=== PATIENT | male | born 2005 | race Caucasian/White ===

== ENCOUNTER 2025-04-28 15:56 | Outpatient (BNV) | payer SELFPAY | END 2025-05-02 11:13 | PROVIDERS: Admitting Provider Psychiatry & Neurology Psychiatry; Visit Provider Internal Medicine Cardiovascular Disease | DX: R07.9 Chest pain, unspecified (principal) | CPT/HCPCS: 93010 ==

== ENCOUNTER 2025-04-28 15:56 | Inpatient (IN) | payer MEDICAID, SELFPAY ==
--- OUTSIDE RECORDS SUMMARY | 2025-04-28 16:02 | XMS_ITS | Clinical Summary ---
Author Organization [facility] Address [address] [place] [id number] Care Team Providers Care Intervention Teacher Name Role Phone Patient, Has No Pcp Or Ref Primary Care Provider Unavailable Allergies No known active allergies Medications * This document contains information received from the source organization and may not represent a complete record from that organization. ondansetron (ZOFRAN ODT) 4 mg disintegrating tablet Dissolve 1 tablet (4 mg total) in the mouth every 8 hours as needed for nausea or vomiting. 12 tablet 4 Active ondansetron (ZOFRAN) 4 mg tablet Take 1 tablet (4 mg total) by mouth every 8 hours as needed for nausea or vomiting for up to 15 doses. 15 tablet 4 Active LORazepam (Ativan) 1 mg tablet Take 0.5 tablets (0.5 mg total) by mouth every 8 hours as needed for anxiety for up to 7 days. 10 tablet 4 Active Active Problems Problem Noted Date Diagnosed Date Dehydration 05/14/2024 Acute renal insufficiency 05/13/2024 Alcohol use disorder 01/24/2024 Assessment & Plan (01/24/2024 6:28 AM EDT): Patient with significant alcohol use Last use was over 3 days ago though He is currently diaphoretic and tachycardic, though withdrawal symptoms is less likely after 3 days CIWA protocol with benzos Thiamine, folic acid, MTV Monitor serum electrolytes and replete as needed IVF Elevated LFTs 12/16/2021 Hepatitis 12/15/2021 Assessment & Plan (12/20/2021 9:49 AM EST): Patient presented to hospital with significant LUQ abdominal pain, nausea, and vomiting, and reported recent episode of binge drinking alcohol. Patient also reports marijuana use. On admission, found to have noted to have abnormal LFTs with elevated T bili 6.0, AST 388, and ALT 462. GGT elevated 41, Ferritin elevated 823. INR 1.1. Acute hepatitis panel negative. Tylenol level, lipase, ceruloplasmin, YURIY, 5' Nucleotidase within normal limits. Marijuana positive. On 12/15/21 CT abdomen/pelvis showed likely hepatic steatosis. On 12/16/21 RUQ US showed gallbladder sludge, no acute cholecystitis and mild fatty liver; No hepatic masses or lesions, patent portal vein on Doppler US. Patient started to feel better, but once regular diet was resumed, patient was unable to tolerate PO intake and continued to vomit. On 12/17 X-ray of abdomen did not show any free air or obstruction. GI consulted, likely alcoholic hepatitis vs. passed gallstone. Per GI, Maddrey Discriminant Function score of 7.1 indicated good prognosis, and no indication for use of steroids. General surgery consulted and determined patient was not a surgical candidate at this time. Throughout hospital course hepatic function panel continued to improve Tbili 3.4 --> 2.1 --> 1.8 --> 1.5. Direct bili 1.3 --> 0.9 --> 0.7 --> 0.6. AST 288 --> 96 --> 55 --> 34. ALT 667 --> 450 --> 316 --> 226. - GI following, appreciate recs - General surgery consulted, appreciate recs - Trend LFTs daily - Continue Protonix 40 mg BID - Supportive care with IVF, PRN antiemetic Reglan and Zofran, diet as tolerated - Follow up with RUQ ultrasound in 3-6 months outpatient - Follow up with GI outpatient for endoscopy Hypokalemia 12/15/2021 Assessment & Plan (12/15/2021 8:14 PM EST): Patient noted to have hypokalemia in setting of vomiting and reduced PO. - Replete and trend labs Admits to alcohol consumption 12/15/2021 Assessment & Plan (12/18/2021 10:19 AM EST): Patient reports intermittent consumption of alcohol, most recently on 12/11/2021 with episode of binge drinking half of a 750cc bottle of tequila and several mixed drinks prior to onset of symptoms before hospital admission. On admission, LFTs elevated AST 388, ALT 462, and GGT 41. - Foam Caster on alcohol cessation - Case management to address resources for alcohol abstinence/rehab resources Resolved Problems Problem Noted Date Diagnosed Date Resolved Date Coffee ground emesis 01/24/2024 024 Assessment & Plan (01/24/2024 6:26 AM EDT): Patient with coffee ground emesis in the setting of intractable vomiting This could be due to erosive gastritis, Samantha Bynum Started pantoprazole 40 mg bid Monitor hemoglobin closely GI consult, planned for EGD tomorrow Coffee ground vomiting 01/24/202401/24 Lactic acidosis 01/24/2024 01/25/2024 Assessment & Plan (01/24/2024 6:36 AM EDT): Initial lactic acid was 6.2 Improved with fluid bolus He has leucocytosis but no obvious source of infection Continue IVF Monitor lactic acid Bandemia 01/24/2024 01/25/2024 Assessment & Plan (01/24/2024 6:37 AM EDT): Patient with leucocytosis No obvious source of infection This may e reactive Monitor closely Monitor for fever Intractable vomiting with nausea 12/20/2021 01/25/2024 Assessment & Plan (01/24/2024 6:24 AM EDT): Patient with intractable vomiting Similar presentation in 2021 in the setting of marijuana use, he says he does not use Marijuana that much again though Zofran as needed Clear liquid for now GI consult, EGD planned for tomorrow Monitor serum electrolytes closely Assessment & Plan (12/20/2021 2:04 PM EST): Patient presented the hospital with significant LUQ abdominal pain, nausea, and vomiting after recent episode of binge drinking alcohol. Patient also reports marijuana use. Urine tox was positive for marijuana on admission. In the hospital, patient had elevated LFTs on admission which continued to downtrend throughout hospital stay. Regardless of improvement in daily labs, patient continued to endorse significant nausea and vomiting, and was unable to tolerate PO intake. Patient's last bowel movement was over a week ago. GI consulted and followed patient while in the hospital. It is possible that there is some component of alcohol-induced gastritis vs. Gastroparesis. Also a possibility of cannabinoid associated hyperemesis syndrome. - Bowel regimen with Mirilax, colace, and senna; patient declined suppository - Started Carafate 1 g four times daily - Trial of Reglan ATC for 24-48 hours - Continue Protonix to 40 mg BID - Zofran PRN nausea - Diet as tolerated - Follow up with GI outpatient for endoscopy - Repeat RUQ US in 3-6 months to evaluate for gallstones/sludge Increased anion gap metabolic acidosis 12/15/2021 12/17/2021 Assessment & Plan (12/15/2021 8:13 PM EST): Patient noted to have increased anion gap metabolic acidosis, in setting of recent alcohol binge drinking and subsequent reduced PO with vomiting. UA with 3+ ketones so suspect starvation ketoacidosis. - D5NS, PO intake as tolerated - Trend BMP Immunizations Immunization Administration Dates Next Due Influenza, Injectable, Quadr ivalent, Preservative Free 01/24/2024(Deferred: Patient Refused) Family History Medical History Relation Name Comments Liver disease Neg Hx Social History Tobacco Use Types Packs/Day Years Used Date Smoking Tobacco: Never Smokeless Tobacco: Never Tobacco Cessation:Counseling Given: Not Answered Alcohol Use Standard Drinks/Week Comments Yes 4 (1 standard drink = 0.6 oz pur e alcohol) Sex and Gender Information Value Date Recorded Sex Assigned at Male 12/15/2021 8:51 PM EST Legal Sex Male 7:11 AM EDT Gender Identity Male 12/15/2021 8:51 PM EST Sexual Orientation Straight 12/15/2021 8: 51 PM EST Last Filed Vital Signs Vital Sign Reading Time Taken Comments Blood Pressure 115/91 04/28/2025 1:34 PM EDT Pulse 67 04/28/2025 1:34 PM EDT Temperature 37 C (98.6 F) 04/28/2025 10:24 AM EDT Respiratory Rate 17 04/28/2025 1:34 PM EDT Oxygen Saturation 98% 04/28/2025 1:34 PM EDT Inhaled Oxygen Concentration - - Weight 83.9 kg (185 lb) 04/28/2025 12:56 AM EDT Height 170.2 cm (5' 7 ) 04/28/2025 12:56 AM EDT Body Mass Index 28.98 04/28/2025 12:56 AM EDT Plan of Treatment Health Maintenance Due Date Last Done Comments HIV Screening 2003 1 Week [facility] 2003 1 Month [facility] 2003 2 Month [facility] 2003 4 Month [facility] 2003 6 Month [facility] 2003 9 Month [facility] 02/19/2004 12 Month [facility] 2004 MMR Vaccines (1 of 1 - Stand renetta series) 2004 15 Month [facility] 08/17/2004 18 Month [facility] 11/15/2004 24 Month [facility] 05/14/2005 30 Month [facility] 09/17/2005 3 to 21 Year [facility] 2006 Well Child Check 2006 DTaP,Tdap,and Td Vaccines (1 - Tdap) 2010 Varicella Vaccines (1 of 2 - 13+ 2-dose series) 2016 HPV Vaccines (2 - Male 2-dos e series) 12/30/2017 06/30/2017 Hepatitis B Vaccines (1 of 3 - 19+ 3-dose series) 2022 COVID-19 Vaccine (1 - 2023-2 5 season) 2024 Alcohol/Substance Use Screening 11/02/2024 Depression Screening and Follow-Up 11/02/2024 Social Drivers of Health Luanne ual Screening 11/02/2024 Influenza Vaccine (Season Ended) 2025 RSV Vaccine (60+ years old a nd patients) (1 - 1-dose 75+ series) 2078 Hepatitis C Screening Completed 12/15/2021 Meningococcal Vaccine Aged Out No valentin parth eligible based on patient's age to complete this topic Pneumococcal Vaccine: Pediat pamela (0-5 Years) and At-Risk Patients (6-50 Years) Aged Out No longer eligible b ased on patient's age to complete this topic Procedures * Due to [place] law, this organization might not be sharing negative HIV tests. Procedure Name Priority Date/Time Associated Diagnosis Comments ACETAMINOPHEN LEVEL STAT 04/27/2025 1 1:32 PM EDT SALICYLATE LEVEL STAT 04/27/2025 11:3 2 PM EDT ETHANOL STAT 04/27/2025 11:32 PM EDT MAGNESIUM STAT 04/27/2025 11:32 PM EDT COMPREHENSIVE METABOLIC PANEL STAT 04/27/2025 11:32 PM EDT CBC AUTO DIFFERENTIAL STAT 04/27/2025 11:32 PM EDT RAPID COVID-19 RNA FOR SURVEILLANCE (ED ONLY) STAT 04/27/2025 11:25 PM EDT ECG 12-LEAD Routine 04/27/2025 11:07 PM EDT HEPATITIS PANEL, ACUTE Routine 2 9:50 PM EST from Last 3 Months or Most Recently Relevant to Health Maintenance Results * Due to [facility] law, this organization might not be sharing negative HIV tests. * CBC Auto Differential (04/27/2025 11:32 PM EDT) WBC 5.3 3.8 - 10.8 10*3/uL 04/27/2025 11:48 PM EDT [facility] RBC 5.25 4.20 - 5.80 10*6/uL 04/27/2025 11:48 PM EDT [facility] Hemoglobin 16.2 13.2 - 17.1 g/dL 04/27/2025 11:48 PM EDT [facility] Hematocrit 47.4 38.5 - 50.0 % 04/27/2025 11:48 PM EDT [facility] MCV 90.3 80.0 - 100.0 fL 04/27/2025 11:48 PM EDT [facility] MCH 30.9 27.0 - 33.0 pg 04/27/2025 11:48 PM EDT [facility] MCHC 34.2 32.0 - 36.0 g/dL 04/27/2025 11:48 PM EDT [facility] RDW 12.8 11.0 - 15.0 % 04/27/2025 11:48 PM EDT [facility] Platelets 216 140 - 400 10*3/uL 04/27/2025 11:48 PM EDT [facility] MPV 10.2 7.5 - 12.5 fL 04/27/2025 11:48 PM EDT [facility] Neutrophil % 55.5 % 04/27/2025 11:48 PM EDT [facility] Immature Grans % 0.4 0.0 - 0.9 % 04/27/2025 11:48 PM EDT [facility] Lymphocyte % 34.5 % 04/27/2025 11:48 PM EDT [facility] Monocyte % 6.6 % 04/27/2025 11:48 PM EDT [facility] Eosinophil % 2.4 % 04/27/2025 11:48 PM EDT [facility] Basophil % 0.6 % 04/27/2025 11:48 PM EDT [facility] Neutrophil # 2.97 1.50 - 7.80 10*3/uL 04/27/2025 11:48 PM EDT [facility] Immature Grans # <0.03 <=0.03 10*3/uL 04/27/2025 11:48 PM EDT [facility] Lymphocyte # 1.80 0.85 - 3.90 10*3/uL 04/27/2025 11:48 PM EDT [facility] Monocyte # 0.40 0.20 - 0.95 10*3/uL 04/27/2025 11:48 PM EDT [facility] Eosinophil # 0.10 0.02 - 0.50 10*3/uL 04/27/2025 11:48 PM EDT [facility] Basophil # <0.03 0.00 - 0.20 10*3/uL 04/27/2025 11:48 PM EDT [facility] nRBC % 0.0 /100 WBCs 04/27/2025 11:48 PM EDT [facility] nRBC # <0.01 <0.01 10*3/uL 04/27/2025 11:48 PM EDT [facility] Blood Structure of peripheral vein / Unknown Venipuncture / Unknown 04/27/2025 11:32 PM EDT 04/27/2025 11:42 PM EDT Marilia Estrella MD LAB BLOOD ORDERABLES Final Resul t Performing Organization Address City/[facility] Co de Phone Number [facility] [address] [place] [address], * Magnesium (04/27/2025 11:32 PM EDT) MG 2.0 1.6 - 2.4 mg/dL 04/28/2025 12:10 AM EDT [facility] Blood Structure of peripheral vein / Unknown Venipuncture / Unknown 04/27/2025 11:32 PM EDT 04/27/2025 11:42 PM EDT Marilia Estrella MD LAB BLOOD ORDERABLES Final Resul t Performing Organization Address City/State/[facility] de Phone Number [facility] [address] [place] [address], [place] * (ABNORMAL) Ethanol (04/27/2025 11:32 PM EDT) Ethanol 82(H) <10 mg/dL 04/28/2025 12:07 AM EDT [facility] Blood Structure of peripheral vein / Unknown Venipuncture / Unknown 04/27/2025 11:32 PM EDT 04/27/2025 11:42 PM EDT us Marilia Estrella MD LAB BLOOD ORDERABLES Final Resul t Performing Organization Address [facility] de Phone Number [facility] [address] [place] [address], [place] * Acetaminophen Level (04/27/2025 11:32 PM EDT) Acetaminophen <5.0 <10.0 ug/mL 04/28/2025 12:10 AM EDT [facility] Comment:Expected Range with Therapeutic Dosin-30 ug/mL Blood Structure of peripheral vein / Unknown Venipuncture / Unknown 04/27/2025 11:32 PM EDT 04/27/2025 11:42 PM EDT Marilia Estrella MD LAB BLOOD ORDERABLES Final Resul t Performing Organization Address [facility] Co de Phone Number [facility] [address] [place] [address], [place] * Salicylate Level (04/27/2025 11:32 PM EDT) Salicylate <1 <3 mg/dL 04/28/2025 12:10 AM EDT [facility] Comment:Expected Range with Therapeutic Dosin-30 mg/dL Blood Structure of peripheral vein / Unknown Venipuncture / Unknown 04/27/2025 11:32 PM EDT 04/27/2025 11:42 PM EDT us Marilia Estrella MD LAB BLOOD ORDERABLES Final Resul t [facility] [address] [place] [address], * (ABNORMAL) CMP - Comprehensive Metabolic Panel (04/27/2025 11:32 PM EDT) NA 143 135 - 145 mmol/L 04/28/2025 12:10 AM EDT [facility] K 4.1 3.5 - 5.3 mmol/L 04/28/2025 12:10 AM EDT [facility] Cl 101 98 - 107 mmol/L 04/28/2025 12:10 AM EDT [facility] CO2 26 22 - 32 mmol/L 04/28/2025 12:10 AM EDT [facility] Anion Gap 16(H) 5 - 15 04/28/2025 12:10 AM EDT [facility] Glucose 102(H) 65 - 99 mg/dL 04/28/2025 12:10 AM EDT [facility] Creatinine 0.80 0.60 - 1.30 mg/dL 04/28/2025 12:10 AM EDT [facility] Calcium 9.4 8.6 - 10.5 mg/dL 04/28/2025 12:10 AM EDT [facility] Total Protein 7.2 6.0 - 8.0 g/dL 04/28/2025 12:10 AM EDT [facility] Albumin 4.8 3.5 - 5.2 g/dL 04/28/2025 12:10 AM EDT [facility] Bilirubin, Total 0.5 0.2 - 1.2 mg/dL 04/28/2025 12:10 AM EDT [facility] Alkaline Phosphatase 68 35 - 129 U/L 04/28/2025 12:10 AM EDT [facility] AST 60(H) 10 - 40 U/L 04/28/2025 12:10 AM EDT [facility] ALT 87(H) 10 - 40 U/L 04/28/2025 12:10 AM EDT [facility] BUN 6(L) 7 - 23 mg/dL 04/28/2025 12:10 AM EDT [facility] eGFR >90 >=60 mL/min/1. 73m2 04/28/2025 12:10 AM EDT [facility] Comment:The estimated glomer ular filtration rate (eGFR) is calculated using a new formula developed by the NKF-ASN task force to eliminate race-based correction factors. The new formula uses serum/plasma creatinine, age, and gender to determine eGFR. A value below 60mls/min might indicate kidney disease and will be flagged. For additional information, see Sal et al, Am J Kidney Dis. 2021;79(2):268- 288, A Unifying Approach for GFR estimation: Recommendations of the NKF-ASN Task Force on Reassessing the Inclusion of Race in Diagnosing Kidney Disease . Globulin, Total 2.4 2.1 - 4.2 g/dL 04/28/2025 12:10 AM EDT [facility] A/G Ratio 2.0 1.5 - 3.0 04/28/2025 12:10 AM EDT [facility] Blood Structure of peripheral vein / Unknown Venipuncture / Unknown 04/27/2025 11:32 PM EDT 04/27/2025 11:42 PM EDT us Marilia Estrella MD LAB BLOOD ORDERABLES Final Resul t [facility] [address] [place] [address], [place] * Rapid COVID-19 for Surveillance - Psych/Admission (04/27/2025 11:25 PM EDT) Pathologist [facility] [place] PCR, SARS CoV-2 RNA Not Detected Not Detected CEPHEID [employer]EXPERT 04/28/2025 12:21 AM EDT [facility] Comment:A Not Detected (Nega tive) test result is indicative of the absence of SARS-CoV-2 RNA at the level of LoD (Limit of Detection). A negative result does not rule out the possibility of COVID-19 and should not be used as the sole basis for treatment or patient management decisions. If COVID-19 is still suspected, based on exposure history together with other clinical findings, re-testing should be considered. Swab Specimen from nasopharyngeal structure / Unknown Non-Blood Collection / Unknown 04/27/2025 11:25 PM EDT 04/27/2025 11:42 PM EDT Narrative [facility] - 04/28/2025 12:21 AM EDT This test was developed, validated and its performance characteristics determined by [facility] Clinical Labs. This test has not been cleared or approved by the U.S. Food and Drug Administration (FDA). FDA Policy for Diagnostic Tests for Coronavirus Disease-2019 during the Public Health Emergency issued January 16, 2020, is followed. Marilia Estrella MD LAB BODY FLUIDS AND STOOLS ORDER TIESHA Final Result [facility] [address] [place] [address], [place] * ECG 12 lead (04/27/2025 11:07 PM EDT) Ventricular Rate EKG 66 BPM MUSE EKG Atrial Rate 66 BPM MUSE EKG SC Interval 146 ms MUSE EKG QRS Interval 90 ms MUSE EKG QT Interval 366 ms MUSE EKG QTC Interval 383 ms MUSE EKG P [place] 46 degrees MUSE EKG R [place] -21 degrees MUSE EKG T Wave [place] 10 degrees MUSE EKG 04/27/2025 11:0 7 PM EDT 04/28/2025 1:45 PM EDT Impressions MUSE EKG - 04/28/2025 1:45 PM EDT Sinus rhythm with blocked premature atrial complexes Otherwise normal ECG When compared with ECG of 23-Jul-2024 19:53, premature atrial complexes are now present ST no longer elevated in Anterior leads QT has shortened Confirmed by Irvin Price ([id number]) on 04/28/2025 1:45:06 PM Narrative Procedure Note Irvin Price MD - 04/28/2025 IMPRESSION: Sinus rhythm with blocked premature atrial complexes Otherwise normal ECG When compared with ECG of 23-Jul-2024 19:53, premature atrial complexes are now present ST no longer elevated in Anterior leads QT has shortened Confirmed by Irvin Price ([id number]) on 04/28/2025 1:45:06 PM us Customizer Ben [facility] ECG ORDERABLES Final Resu lt MUSE EKG * Hepatitis Panel, Acute (12/15/2021 9:50 PM EST) Hepatitis A IgM NON-REACT YOON NON-REACT YOON 12/16/2021 7:31 PM EST [employer] [facility] Hepatitis B Surface Antigen NON-REACT YOON NON-REACT YOON 12/16/2021 7:31 PM EST [employer] [facility] Hepatitis B Core Antibody NON-REACT YOON NON-REACT YOON 12/16/2021 7:31 PM EST [employer] [facility] Hepatitis C Antibody NON-REACT YOON NON-REACT YOON 12/16/2021 7:31 PM EST [employer] [facility] Signal To Cut-Off 0.02 <1.00 12/16/2021 7:31 PM EST [facility] Comment: HCV antibody was non-reactive. There is no laboratory evidence of HCV infection. In most cases, no further action is required. However, if recent HCV exposure is suspected, a test for HCV RNA (test code 06998) is suggested. For additional information please refer to http://education.ActX/faq/YNC01u2 (This link is being provided for informational/ educational purposes only.) For additional information, please refer to http://education.nContact Surgical.Simpleview/faq/YEP339 (This link is being provided for informational/ educational purposes only.) Blood Structure of peripheral vein / Unknown Venipuncture / Unknown 12/15/2021 9:50 PM EST 12/15/2021 10:12 PM EST Narrative [facility] - 12/16/2021 7:31 PM EST [facility] Received Date: us Meredith Goncalves MD LAB BLOOD ORDERABLES Fin al Result [facility] [address], [place] [address], [employer] [facility] [address], [place] [address], [place] [phone] from Last 3 Months or Most Recently Relevant to Health Maintenance Insurance HS/FREE CARE Advance Directives * Full Code (Latest Code Status on File) Date Activated Date Inactivated Comments 05/13/2024 7:50 PM 05/14/2024 6:57 PM * Full Code Date Activated Date Inactivated Comments 01/24/2024 6:36 AM 01/25/2024 3:19 AM * Full Code Date Activated Date Inactivated Comments 12/15/2021 7:16 PM 12/21/2021 1:48 PM Care Teams Intervention Teacher Relationship Specialty Start Date End Date Patient, Has No Pcp Or Ref DO NOT EDIT THIS RECORD VIA PROVIDER ON THE FLY PCP - General Voicer 07/23/24
[2025-04-28 17:02] VITALS: BP 112/55; PULSE 80; RESP 16; TEMP 36.8; O2SAT 99; BMI 23.8
--- NOTE | 2025-04-28 19:02 | PC.ADMIT ---
Addendum entered by Chelsie Go RN 04/28/25 19:29: Henrietta agrees to meet with addiction services. Original Note: Henrietta was biba from [facility]. He is alert, oriented x4 and disheveled. He appears stated age. He was cooperative with skin/safety check and skin check is unremarkable. He is pleasant but restless and tangential immediately complaining of ?withdrawal?. Per Henrietta, he went to the ED as he had been drinking alot (about 3 pints of alexandre a day) and taking 10-20 2mg xanax daily the xanax he purchases off the street.? He denies that this is a suicidal gesture. ?I just don't want to feel things ya know? I wanna numb out? He reported that he has been drinking, using cocaine and benzos ?for 5 years?. He reports he was hospitalized for alcohol poisoning ?maybe last year?? for about 3 weeks. He reported his longest period of sobriety was earlier this year for ?5 months, I quit cold turkey. But then I broke up with someone and it started again?. He is not a cigarette smoker but smokes marijuana every day. He also states he gets adderall and gabapentin from ?friends?. He says that since his hospitalization he has had some persistent left abdominal discomfort and frequent nausea. ?Per crisis report?he lives with his mom, stepfather and grandma. He had been texting in a family group text ?I?m done I?m just giong to kill myself. You could say drama whatever but you know when I say something, I?m no pussy. I don't matter. I?m nothing? He had an inhome assessment he endorsed active SI ?theres at least 20 ways I could do it?. He had been agitated at home and punched a brick wall but couldn't articulate why.? He has no outpatient providers. He was unsure what meds he?s actually taking or should be taking. He did not want to sign any ROIs currently and states he has no insurance. He currently denies any urges to harm self or others and any visual or perceptual disturbances. He is on a CIWA and scored a 9 shortly after arrival. He was medicated appropriately.?He is currently on 15 minute safety checks.
[2025-04-28 19:44] VITALS: BP 118/58; PULSE 106; TEMP 36.8
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
[2025-04-29 07:57] LABS: MANUAL DIFF FLAG NO
[2025-04-29 08:00] VITALS: BP 126/48; PULSE 45; RESP 16; TEMP 36.2; O2SAT 97
[2025-04-29 08:00] LABS: Hematocrit 49.0 % (42.0-52.0); Hemoglobin 16.7 g/dl (14.0-18.0); Imm Gran Abs Auto 0.02 X10*3/uL (0.00-0.03); Imm Gran Pct Auto 0.4 % (0.0-0.4); Lymphocytes Absolute Auto 2.1 X10*3/uL (1.2-4.9); Mean Corpuscular HGB Conc 34.1 g/dl (31.0-36.0); Mean Corpuscular Hemoglobin 30.3 pg (27.0-33.0); Mean Corpuscular Volume 88.9 fL (80.0-98.0); NRBC Abs Auto 0.000 X10*3/uL (0.0-0.012); NRBC Pct Auto 0.0 /100WBC (0.0-0.2); Platelet Count 203 X10*3/uL (160-400); Red Blood Count 5.51 X10*6/uL (4.60-5.80); White Blood Count 5.5 X10*3/uL (4.8-10.8)
[2025-04-29 08:17] LABS: Hemoglobin A1C 99.7524 umol/L; Total Hemoglobin (HGBA1C) 4310.3551 umol/L
[2025-04-29 08:24] LABS: Alanine Aminotransferase 123 U/L (0-40); Albumin Level 4.9 g/dL (3.5-5.0); Alkaline Phosphatase 69 U/L (39-117); Anion Gap 15 (12-20); Aspartate Amino Transferase 78 U/L (5-37); Blood Urea Nitrogen 8 mg/dL (9-16); Calcium 9.7 mg/dL (8.4-10.2); Carbon Dioxide 28 mmol/L (22-29); Chloride 101 mmol/L (96-108); Cholesterol 130 mg/dL (<200); Creatinine Clr Calc Pharmacy 124.2; Estimated Glomerular Filt Rate > 60; HDL Cholesterol 64 mg/dL (>40); Potassium 3.9 mmol/L (3.3-5.1); Sodium 140 mmol/L (135-145); Total Protein 7.6 g/dL (6.5-8.0); Triglycerides 88 mg/dL (<150)
[2025-04-29] MEDS: Nicotine 21 MG PATCH.TD24 TRANSDERMA (08:28)
[2025-04-29 08:39] LABS: Free T4 (Free Thyroxine) 0.90 ng/dL (0.71-1.85); Thyroid Stimulating Hormone 1.21 uIU/mL (0.32-4.0)
[2025-04-29 08:52] LABS: Folate 10.8 ng/mL (> or = 4.0)
[2025-04-29 09:52] LABS: HBS Num1 0.43 mIU/mL (0-7.99); HBc Num1 0.11 S/CO (0.00-0.79); HBsAGNum1 0.42 S/CO (0.00-0.99); HIV Num 1 0.05 S/CO (0.00-0.99); Hepatitis A Antibody IgM 0.27 Index (0-0.79); Hepatitis B Surface Antigen Negative (Negative); ~HepC Num1 0.09 S/CO (0.00-0.79); ~Hepatitis A Antibody IgM Nonreactive (Nonreactive); ~Hepatitis B Surface Antibody NONREACTIVE (Nonreactive); ~Hepatitis C Antibody Nonreactive (Nonreactive)
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
[2025-04-29 19:36] VITALS: BP 121/77; PULSE 66; TEMP 36.2; O2SAT 100
[2025-04-30 07:55] VITALS: BP 118/53; PULSE 67; RESP 16; TEMP 36.4; O2SAT 97
[2025-04-30] MEDS: Nicotine 21 MG PATCH.TD24 TRANSDERMA (08:13)
--- NOTE | 2025-04-30 09:41 | P.PNPSI_ITS ---
Subjective Subjective Date of Service: 04/30/25 Reason For Visit: MDD Recurrent Unspec Alcohol Use D/O Etc Interim History: Patient reports he had some withdrawal last night and received Ativan and it helped. He reports his mood has been depressed. He denies SI. He reports in the past being on Seroquel and it was helpful for his mood and depression and sleep. He is requesting to be put on that. He is alert. No tremors. No hallucinations. He feels bad about disappointing his family. Review of Systems Review of Systems Yes all other systems are reviewed and are negative Mental Status Exam Mental Status Exam Narrative: General appearance: Hospital clothes. fair hygiene.? Eye contact: WNL. Musculoskeletal: Normal muscle strength/tone, Normal gait and station, No abnormal involuntary movements like tremors, EPS or dyskinesia. No psychomotor agitation or retardation. Normal posture.??? Manner/behavior: cooperative and not guarded Speech:? Fluent, with normal rate, tone and volume. Language: No receptive or expressive language impairment? Mood: depressed. Affect: constricted range, congruent to mood and without lability? Thought process/associations: Linear with no flight of ideas or loose associations.?? Thought content:?No delusions or paranoia.?? Hallucinations: No auditory, visual or other hallucinations Suicidality/self-destructive behavior: Denies current? ? Homicidally/violence: none.? Reliability: questionable.? ? Judgment: poor.? ? Insight: questionable Cognition: Alert and oriented to time, place and person. Attention, concentration and fund of knowledge are normal.? Impulse control and emotional regulation: impaired Intelligence estimate: average.? Diagnostics Vital Signs (24Hr): Vital Signs - 24 hr 04/29/25 19:36 04/30/25 07:55 Temperature 97.2 F 97.5 F Pulse Rate 66 67 Respiratory Rate 16 Blood Pressure 121/77 118/53 L Pulse Oximetry 100 97 Oxygen Delivery Method Room Air Room Air BMI result Body Mass Index 23.8 Labs 04/29/25 07:49 04/29/25 07:49 Labs: Laboratory Results - last 48 hr 04/29/25 07:49 WBC 5.5 RBC 5.51 Hgb 16.7 Hct 49.0 MCV 88.9 MCH 30.3 MCHC 34.1 RDW 12.9 Plt Count 203 MPV 9.9 Immature Gran % (Auto) 0.4 Neut % (Auto) 51.6 Lymph % (Auto) 37.4 Mcmullen % (Auto) 7.6 Eos % (Auto) 2.5 Baso % (Auto) 0.5 Lymph # (Auto) 2.1 [place]mullen # (Auto) 0.4 Eos # (Auto) 0.1 Baso # (Auto) 0.0 Abs Immat Gran (auto) 0.02 Absolute Neuts (auto) 2.8 Absolute Nucleated RBC 0.000 Nucleated RBC % (auto) 0.0 Sodium 140 Potassium 3.9 Chloride 101 Carbon Dioxide 28 Anion Gap 15 BUN 8 L Creatinine 0.91 Estim Creat Clear Calc 124.2 Estimated GFR > 60 Random Glucose 83 Estimat Average Glucose 77 Hemoglobin A1c % 4.3 Calcium 9.7 Total Bilirubin 1.2 H Direct Bilirubin 0.5 AST 78 H ALT 123 H Alkaline Phosphatase 69 Total Protein 7.6 Albumin 4.9 Triglycerides 88 Cholesterol 130 LDL Cholesterol, Calc 49 HDL Cholesterol 64 Folate 10.8 TSH 1.21 Free T4 0.90 Hepatitis A IgM Ab Nonreactive Hep Bs Antigen Negative Hep Bs Antibody NONREACTIVE Hep B Core Total Ab Nonreactive Hepatitis C Ab (EIA) Nonreactive HIV 1&2 Ab/P24 Ag 4thGn Nonreactive Medications Medications Current Medications Acetaminophen (Acetaminophen 325 Mg Tablet) 650 mg PO Q6H PRN PRN Reason: Headache/Pain, Scale 1-10 Al Hydroxide/Mg Hydroxide (Magnesium Hydrox/Alum Hydrox 30 Ml Oral.Susp) 30 ml PO Q6H PRN PRN Reason: Heartburn/Nausea Clotrimazole (Clotrimazole 10 Mg Juanita) 10 mg MUCOUS MEM 5XD [facility] Stop: 05/01/25 20:59 Last Admin: 04/30/25 08:13 Dose: 10 mg Folic Acid (Folic Acid 1 Mg Tablet) 1 mg PO DAILY [facility] Last Admin: 04/30/25 08:13 Dose: 1 mg Gabapentin (Gabapentin 300 Mg Capsule) 300 mg PO TID [facility] Last Admin: 04/30/25 08:13 Dose: 300 mg Hydroxyzine HCl (Hydroxyzine Hcl 25 Mg Tablet) 25 mg PO Q6H PRN PRN Reason: mild anxiety Last Admin: 04/30/25 02:18 Dose: 25 mg Lorazepam (Lorazepam 1 Mg Tablet) 1 mg PO Q2H PRN PRN Reason: CIWA 8-11 Last Admin: 04/30/25 00:44 Dose: 1 mg Lorazepam (Lorazepam 1 Mg Tablet) 2 mg PO Q2H PRN PRN Reason: CIWA 12-15 Lorazepam (Lorazepam 1 Mg Tablet) 3 mg PO Q2H PRN PRN Reason: CIWA > 15, and call Magnesium Hydroxide (Milk Of Magnesia 30 Ml Oral.Susp) 30 ml PO DAILY PRN PRN Reason: Constipation Nicotine (Nicotine 21 Mg Patch.Td24) 21 mg TRANSDERMA DAILY [facility] Last Admin: 04/30/25 08:13 Dose: 21 mg Nicotine Polacrilex (Nicotine Polacrilex 2 Mg Gum) 4 mg BUCCAL Q2H PRN PRN Reason: Nicotine Cravings Olanzapine (Olanzapine 5 Mg Tablet) 5 mg PO BID PRN PRN Reason: agitation Last Admin: 04/28/25 20:26 Dose: 5 mg Ondansetron HCl (Ondansetron Odt 4 Mg Tab.Rapdis) 4 mg TRANSLINGU Q6H PRN PRN Reason: Nausea and Vomiting Thiamine HCl (Thiamine Hcl 100 Mg Tablet) 100 mg PO DAILY [facility] Last Admin: 04/30/25 08:13 Dose: 100 mg Trazodone HCl (Trazodone Hcl 50 Mg Tablet) 50 mg PO BEDTIME MRX1 PRN PRN Reason: Insomnia Last Admin: 04/29/25 20:27 Dose: 50 mg Allergies Allergies Allergy/AdvReac Type Severity Reaction Status Date / Time No Known Allergies Allergy Verified 04/28/25 17:02 Assessment & Plan Assessment & Plan (1) Thrush: Status: Acute Code(s): B37.0 - Candidal stomatitis (2) Alcohol dependence: Status: Acute Code(s): F10.20 - Alcohol dependence, uncomplicated (3) Benzodiazepine abuse: Status: Acute Code(s): F13.10 - Sedative, hypnotic or anxiolytic abuse, uncomplicated (4) Depression: Status: Acute Code(s): F32.A - Depression, unspecified Plan (2) Alcohol dependence: Status: Acute Code(s): F10.20 - Alcohol dependence, uncomplicated (3) Benzodiazepine abuse: Status: Acute Code(s): F13.10 - Sedative, hypnotic or anxiolytic abuse, uncomplicated (4) Depression: Status: Acute Code(s): F32.A - Depression, unspecified Plan 19 yo with alcohol and benzodiazepine use disorder transferred from [facility] due to suicidal ideation. PLAN: - Admit to inpatient psychiatry - CV - Collateral information from family and providers. - Milieu treatment and group therapy. - Medications: WA protocol. Add Gabapentin 300 mg TID to prevent withdrawal seizures and help with detox. - Social work evaluation. - Disposition planning. - Consider section 35. 04/30: Start Seroquel 50 mg HS. Otherwise continue current management and treatment plan. Reason for continued inpatient stay Substantial Risk for: harm to self, inability to function and rapid decompensation Time Spent With Patient Time: Total time managing care of this patient today ____ minutes.
--- NOTE | 2025-04-30 15:56 | MHC.RECOVRN ---
Addiction Consult: Met with Henrietta in [phone] after receiving addiction consult to discuss substance use, recovery supports, and other resources. Pt stated he is interested in speaking with the Addiction Medicine provide in regards to YOLANDE initiation. Pt declined outpatient TRACI appointment with the [facility] as he is from the [facility], he is however interested in exploring TRACI programs like IOPs closer to [place] hometown. Pt provided with written materials on harm reduction, YOLANDE, and recovery support programs such as CSS and IOPs. No further questions or concerns offered at this time. Discussed with Isak Mayfield NP.
[2025-04-30 20:00] VITALS: BP 131/62; PULSE 109; TEMP 37.3; O2SAT 98
[2025-05-01 08:24] VITALS: BP 116/60; PULSE 78; RESP 16; TEMP 36.8; O2SAT 98
[2025-05-01] MEDS: Nicotine 21 MG PATCH.TD24 TRANSDERMA (08:43)
--- NOTE | 2025-05-01 13:14 | HO.PSYCHPN ---
Subjective Subjective Date of Service: 05/01/25 Reason For Visit: MDD Recurrent Unspec Alcohol Use D/O Etc Interim History: Active on unit, pacing unit hallway with headphones. Patient reports feeling anxious ; pt stated, I'm still having withdrawal symptoms. I plan on staying sober. I was sober for 4 months but I started doing pills and cocaine again . denies SI/HI/VH/AH. focused on sobriety. labs ordered; awaiting results. continue CIWA. Continue current tx plan. Medication Compliance: Yes Side effects from medications: No Mental Status Exam Mental Status Exam Patient Appearance: Appropriate Patient Orientation: Person, Place, Time and Situation Level of Consciousness: Awake and Alert Patient Behavior: Appropriate, Cooperative and Good Eye Contact Mood Description: Anxious Affect Description: Constricted Ability to Follow Directions: Good Speech Pattern: Clear Memory Description: Intact Hallucinations: None Delusions: Not Present Thought Process: Intact and Goal Oriented Thought Content: positive for Intact Diagnostics Vital Signs (24Hr): Vital Signs - 24 hr 04/30/25 20:00 05/01/25 08:24 Temperature 99.1 F 98.3 F Pulse Rate 109 H 78 Respiratory Rate 16 Blood Pressure 131/62 116/60 Pulse Oximetry 98 98 Oxygen Delivery Method Room Air Room Air BMI result Body Mass Index 23.8 Labs 04/29/25 07:49 04/29/25 07:49 Medications Medications Current Medications Acetaminophen (Acetaminophen 325 Mg Tablet) 650 mg PO Q6H PRN PRN Reason: Headache/Pain, Scale 1-10 Last Admin: 05/01/25 07:33 Dose: 650 mg Al Hydroxide/Mg Hydroxide (Magnesium Hydrox/Alum Hydrox 30 Ml Oral.Susp) 30 ml PO Q6H PRN PRN Reason: Heartburn/Nausea Clotrimazole (Clotrimazole 10 Mg Juanita) 10 mg MUCOUS MEM 5XD [facility] Stop: 05/01/25 20:59 Last Admin: 05/01/25 11:56 Dose: 10 mg Folic Acid (Folic Acid 1 Mg Tablet) 1 mg PO DAILY [facility] Last Admin: 05/01/25 08:43 Dose: 1 mg Gabapentin (Gabapentin 300 Mg Capsule) 300 mg PO TID [facility] Last Admin: 05/01/25 08:43 Dose: 300 mg Hydroxyzine HCl (Hydroxyzine Hcl 25 Mg Tablet) 25 mg PO Q6H PRN PRN Reason: mild anxiety Last Admin: 05/01/25 11:58 Dose: 25 mg Lorazepam (Lorazepam 1 Mg Tablet) 1 mg PO Q2H PRN PRN Reason: CIWA 8-11 Last Admin: 04/30/25 00:44 Dose: 1 mg Lorazepam (Lorazepam 1 Mg Tablet) 2 mg PO Q2H PRN PRN Reason: CIWA 12-15 Lorazepam (Lorazepam 1 Mg Tablet) 3 mg PO Q2H PRN PRN Reason: CIWA > 15, and call Magnesium Hydroxide (Milk Of Magnesia 30 Ml Oral.Susp) 30 ml PO DAILY PRN PRN Reason: Constipation Nicotine (Nicotine 21 Mg Patch.Td24) 21 mg TRANSDERMA DAILY [facility] Last Admin: 05/01/25 08:43 Dose: 21 mg Nicotine Polacrilex (Nicotine Polacrilex 2 Mg Gum) 4 mg BUCCAL Q2H PRN PRN Reason: Nicotine Cravings Last Admin: 04/30/25 11:55 Dose: 4 mg Olanzapine (Olanzapine 5 Mg Tablet) 5 mg PO BID PRN PRN Reason: agitation Last Admin: 04/28/25 20:26 Dose: 5 mg Ondansetron HCl (Ondansetron Odt 4 Mg Tab.Rapdis) 4 mg TRANSLINGU Q6H PRN PRN Reason: Nausea and Vomiting Quetiapine Fumarate (Quetiapine Fumarate 50 Mg Tablet) 50 mg PO BEDTIME [facility] Last Admin: 04/30/25 22:21 Dose: 50 mg Thiamine HCl (Thiamine Hcl 100 Mg Tablet) 100 mg PO DAILY [facility] Last Admin: 05/01/25 08:43 Dose: 100 mg Trazodone HCl (Trazodone Hcl 50 Mg Tablet) 50 mg PO BEDTIME MRX1 PRN PRN Reason: Insomnia Last Admin: 04/29/25 20:27 Dose: 50 mg Allergies Allergies Allergy/AdvReac Type Severity Reaction Status Date / Time No Known Allergies Allergy Verified 04/28/25 17:02 Assessment & Plan Assessment & Plan (1) Depression: Status: Acute Code(s): F32.A - Depression, unspecified (2) Alcohol dependence: Status: Acute Code(s): F10.20 - Alcohol dependence, uncomplicated (3) Thrush: Status: Acute Code(s): B37.0 - Candidal stomatitis (4) Benzodiazepine abuse: Status: Acute Code(s): F13.10 - Sedative, hypnotic or anxiolytic abuse, uncomplicated Plan 19 yo with alcohol and benzodiazepine use disorder transferred from [facility] due to suicidal ideation. PLAN: - Admit to inpatient psychiatry - CV - Collateral information from family and providers. - Milieu treatment and group therapy. - Medications: CIWA protocol. Add Gabapentin 300 mg TID to prevent withdrawal seizures and help with detox. - Social work evaluation. - Disposition planning. - Consider section 35. 04/30: Start Seroquel 50 mg HS. Otherwise continue current management and treatment plan. 05/01: Active on unit, pacing unit hallway with headphones. Patient reports feeling anxious ; pt stated, I'm still having withdrawal symptoms. I plan on staying sober. I was sober for 4 months but I started doing pills and cocaine again . denies SI/HI/VH/AH. focused on sobriety. labs ordered; awaiting results. continue CIWA. Continue current tx plan. Patient educated on: diagnosis, medication risk/benefits and therapeutic strategies Reason for continued inpatient stay Substantial Risk for: med/psych decompensation Time Spent With Patient Time: Total time managing care of this patient today _20___ minutes.
[2025-05-01 13:53] LABS: MANUAL DIFF FLAG NO
[2025-05-01 13:56] LABS: Hematocrit 46.7 % (42.0-52.0); Hemoglobin 16.4 g/dl (14.0-18.0); Imm Gran Abs Auto 0.01 X10*3/uL (0.00-0.03); Imm Gran Pct Auto 0.2 % (0.0-0.4); Lymphocytes Absolute Auto 1.5 X10*3/uL (1.2-4.9); Mean Corpuscular HGB Conc 35.1 g/dl (31.0-36.0); Mean Corpuscular Hemoglobin 31.2 pg (27.0-33.0); Mean Corpuscular Volume 88.8 fL (80.0-98.0); NRBC Abs Auto 0.000 X10*3/uL (0.0-0.012); NRBC Pct Auto 0.0 /100WBC (0.0-0.2); Platelet Count 186 X10*3/uL (160-400); Red Blood Count 5.26 X10*6/uL (4.60-5.80); White Blood Count 5.7 X10*3/uL (4.8-10.8)
[2025-05-01 14:01] LABS: Ammonia 32 umol/L (13-55)
[2025-05-01 14:10] LABS: Alanine Aminotransferase 172 U/L (0-40); Albumin Level 5.0 g/dL (3.5-5.0); Alkaline Phosphatase 74 U/L (39-117); Anion Gap 14 (12-20); Aspartate Amino Transferase 113 U/L (5-37); Blood Urea Nitrogen 6 mg/dL (9-16); Calcium 9.8 mg/dL (8.4-10.2); Carbon Dioxide 27 mmol/L (22-29); Chloride 104 mmol/L (96-108); Creatinine Clr Calc Pharmacy 128.4; Estimated Glomerular Filt Rate > 60; Potassium 3.8 mmol/L (3.3-5.1); Sodium 141 mmol/L (135-145); Total Protein 7.7 g/dL (6.5-8.0)
[2025-05-01 19:46] VITALS: BP 130/63; PULSE 108; TEMP 37.4; O2SAT 96
--- NOTE | 2025-05-02 | ECG_ITS ---
Test Reason : CHEST PAIN Blood Pressure : */* mmHG Vent. Rate : 86 BPM Atrial Rate : 86 BPM P-R Int : 134 ms QRS Dur : 96 ms QT Int : 350 ms P-R-T Axes : 48 -12 27 degrees QTcB Int : 418 ms Normal sinus rhythm with sinus arrhythmia Normal ECG No previous ECGs available Referred By: Leisa Castro Electronically Signed By: LA FERMIN MD
[2025-05-02 08:00] VITALS: BP 130/60; PULSE 99; RESP 16; TEMP 36.4; O2SAT 96
[2025-05-02] MEDS: Nicotine 21 MG PATCH.TD24 TRANSDERMA (08:40)
--- NOTE | 2025-05-02 14:23 | HO.PSYCHPN ---
Subjective Subjective Date of Service: 05/02/25 Reason For Visit: MDD Recurrent Unspec Alcohol Use D/O Etc Interim History: Laying in bed. Patient reports feeling anxious and annoyed because of my withdrawal symptoms ; pt utilizing PRN medications. denies any vomiting. denies SI/HI/VH/AH. focused on sobriety. Continue current tx plan. Medication Compliance: Yes Side effects from medications: No Attending Groups: No Mental Status Exam Mental Status Exam Patient Appearance: Appropriate Patient Orientation: Person, Place, Time and Situation Level of Consciousness: Awake and Alert Patient Behavior: Appropriate, Cooperative and Good Eye Contact Mood Description: Anxious Affect Description: Anxious Ability to Follow Directions: Good Speech Pattern: Clear Memory Description: Intact Hallucinations: None Delusions: Not Present Thought Process: Intact and Goal Oriented Thought Content: positive for Intact Diagnostics Vital Signs (24Hr): Vital Signs - 24 hr 05/01/25 19:46 05/02/25 08:00 Temperature 99.3 F 97.6 F Pulse Rate 108 H 99 Respiratory Rate 16 Blood Pressure 130/63 130/60 Pulse Oximetry 96 96 Oxygen Delivery Method Room Air Room Air BMI result Body Mass Index 23.8 Labs 05/01/25 13:48 05/01/25 13:48 Labs: Laboratory Results - last 48 hr 05/01/25 13:48 WBC 5.7 RBC 5.26 Hgb 16.4 Hct 46.7 MCV 88.8 MCH 31.2 MCHC 35.1 RDW 13.1 Plt Count 186 MPV 10.1 Immature Gran % (Auto) 0.2 Neut % (Auto) 64.7 Lymph % (Auto) 26.1 [place] % (Auto) 7.4 Eos % (Auto) 1.1 Baso % (Auto) 0.5 Lymph # (Auto) 1.5 [place] # (Auto) 0.4 Eos # (Auto) 0.1 Baso # (Auto) 0.0 Abs Immat Gran (auto) 0.01 Absolute Neuts (auto) 3.7 Absolute Nucleated RBC 0.000 Nucleated RBC % (auto) 0.0 Sodium 141 Potassium 3.8 Chloride 104 Carbon Dioxide 27 Anion Gap 14 BUN 6 L Creatinine 0.88 Estim Creat Clear Calc 128.4 Estimated GFR > 60 Random Glucose 127 H Calcium 9.8 Total Bilirubin 0.6 Direct Bilirubin 0.3 AST 113 H ALT 172 H Alkaline Phosphatase 74 Ammonia 32 Total Protein 7.7 Albumin 5.0 Medications Medications Current Medications Acetaminophen (Acetaminophen 325 Mg Tablet) 650 mg PO Q6H PRN PRN Reason: Headache/Pain, Scale 1-10 Last Admin: 05/01/25 07:33 Dose: 650 mg Al Hydroxide/Mg Hydroxide (Magnesium Hydrox/Alum Hydrox 30 Ml Oral.Susp) 30 ml PO Q6H PRN PRN Reason: Heartburn/Nausea Clonazepam (Clonazepam 0.5 Mg Tablet) 0.5 mg PO BID PRN PRN Reason: Anxiety Last Admin: 05/02/25 10:59 Dose: 0.5 mg Folic Acid (Folic Acid 1 Mg Tablet) 1 mg PO DAILY [facility] Last Admin: 05/02/25 08:40 Dose: 1 mg Gabapentin (Gabapentin 300 Mg Capsule) 300 mg PO TID [facility] Last Admin: 05/02/25 08:40 Dose: 300 mg Hydroxyzine HCl (Hydroxyzine Hcl 25 Mg Tablet) 25 mg PO Q6H PRN PRN Reason: mild anxiety Last Admin: 05/02/25 13:44 Dose: 25 mg Lorazepam (Lorazepam 1 Mg Tablet) 1 mg PO Q2H PRN PRN Reason: CIWA 8-11 Last Admin: 05/02/25 12:35 Dose: 1 mg Lorazepam (Lorazepam 1 Mg Tablet) 2 mg PO Q2H PRN PRN Reason: CIWA 12-15 Lorazepam (Lorazepam 1 Mg Tablet) 3 mg PO Q2H PRN PRN Reason: CIWA > 15, and call Magnesium Hydroxide (Milk Of Magnesia 30 Ml Oral.Susp) 30 ml PO DAILY PRN PRN Reason: Constipation Nicotine (Nicotine 21 Mg Patch.Td24) 21 mg TRANSDERMA DAILY [facility] Last Admin: 05/02/25 08:40 Dose: 21 mg Nicotine Polacrilex (Nicotine Polacrilex 2 Mg Gum) 4 mg BUCCAL Q2H PRN PRN Reason: Nicotine Cravings Last Admin: 05/02/25 13:44 Dose: 4 mg Olanzapine (Olanzapine 5 Mg Tablet) 5 mg PO BID PRN PRN Reason: agitation Last Admin: 05/01/25 21:14 Dose: 5 mg Ondansetron HCl (Ondansetron Odt 4 Mg Tab.Rapdis) 4 mg TRANSLINGU Q6H PRN PRN Reason: Nausea and Vomiting Quetiapine Fumarate (Quetiapine Fumarate 50 Mg Tablet) 50 mg PO BEDTIME [facility] Last Admin: 05/01/25 21:14 Dose: 50 mg Thiamine HCl (Thiamine Hcl 100 Mg Tablet) 100 mg PO DAILY [facility] Last Admin: 05/02/25 08:40 Dose: 100 mg Trazodone HCl (Trazodone Hcl 50 Mg Tablet) 50 mg PO BEDTIME MRX1 PRN PRN Reason: Insomnia Last Admin: 05/01/25 21:14 Dose: 50 mg Allergies Allergies Allergy/AdvReac Type Severity Reaction Status Date / Time No Known Allergies Allergy Verified 04/28/25 17:02 Assessment & Plan Assessment & Plan (1) Depression: Status: Acute Code(s): F32.A - Depression, unspecified (2) Alcohol dependence: Status: Acute Code(s): F10.20 - Alcohol dependence, uncomplicated (3) Thrush: Status: Acute Code(s): B37.0 - Candidal stomatitis (4) Benzodiazepine abuse: Status: Acute Code(s): F13.10 - Sedative, hypnotic or anxiolytic abuse, uncomplicated Plan 19 yo with alcohol and benzodiazepine use disorder transferred from [facility] due to suicidal ideation. PLAN: - Admit to inpatient psychiatry - CV - Collateral information from family and providers. - Milieu treatment and group therapy. - Medications: CIWA protocol. Add Gabapentin 300 mg TID to prevent withdrawal seizures and help with detox. - Social work evaluation. - Disposition planning. - Consider section 35. 04/30: Start Seroquel 50 mg HS. Otherwise continue current management and treatment plan. 05/01: Active on unit, pacing unit hallway with headphones. Patient reports feeling anxious ; pt stated, I'm still having withdrawal symptoms. I plan on staying sober. I was sober for 4 months but I started doing pills and cocaine again . denies SI/HI/VH/AH. focused on sobriety. labs ordered; awaiting results. continue CIWA. Continue current tx plan. 05/02: Laying in bed. Patient reports feeling anxious and annoyed because of my withdrawal symptoms ; pt utilizing PRN medications. denies any vomiting. denies SI/HI/VH/AH. focused on sobriety. Continue current tx plan. Patient educated on: diagnosis, medication risk/benefits and therapeutic strategies Reason for continued inpatient stay Substantial Risk for: med/psych decompensation Time Spent With Patient Time: Total time managing care of this patient today _20___ minutes.
[2025-05-02 19:45] VITALS: BP 152/79; PULSE 102; TEMP 36.8; O2SAT 96
[2025-05-03 08:00] VITALS: BP 125/72; PULSE 70; RESP 16; TEMP 36.7; O2SAT 98
--- NOTE | 2025-05-03 09:42 | P.PNPSI_ITS ---
Subjective Subjective Date of Service: 05/03/25 Reason For Visit: MDD Recurrent Unspec Alcohol Use D/O Etc Subjective Notes: Conditional Voluntary Interim History: Patient states that he feels bad. He notes that he woke up feeling sick and sweaty and attributes that to anxiety from drug and alcohol withdrawal symptoms. He states that he has been taking the medications and attending groups. He endorses anxiety and depression. He denies SI/HI/AH/VH. He declines the patient referral for drug and alcohol use disorder. However, he is willing to speak to someone from [facility] comprehensive care team about his drug and alcohol use. Medication Compliance: Yes Side effects from medications: No Attending Groups: Intermittent Review of Systems Acute medical concerns: No Mental Status Exam Mental Status Exam Narrative: Appearance: Casually dressed, adequate hygiene Behavior: Calm and cooperative throughout the interview. Eye contact is appropriate, and there are no signs of psychomotor agitation or retardation Speech: Normal volume and prosody Thought process: logical and goal-directed Thought content: Future oriented no self-harming thoughts Mood: Bad Affect: Flat SI:denies HI:denies VH/AH:none Delusions: None Insight/judgment: Fair insight and judgment Memory/cog: Alert, oriented x 4. grossly intact to conversational testing Diagnostics Vital Signs (24Hr): Vital Signs - 24 hr 05/02/25 19:45 Temperature 98.2 F Pulse Rate 102 H Blood Pressure 152/79 H Pulse Oximetry 96 Oxygen Delivery Method Room Air BMI result Body Mass Index 23.8 Labs 05/01/25 13:48 05/01/25 13:48 Labs: Laboratory Results - last 48 hr 05/01/25 13:48 WBC 5.7 RBC 5.26 Hgb 16.4 Hct 46.7 MCV 88.8 MCH 31.2 MCHC 35.1 RDW 13.1 Plt Count 186 MPV 10.1 Immature Gran % (Auto) 0.2 Neut % (Auto) 64.7 Lymph % (Auto) 26.1 Fisher % (Auto) 7.4 Eos % (Auto) 1.1 Baso % (Auto) 0.5 Lymph # (Auto) 1.5 Fisher # (Auto) 0.4 Eos # (Auto) 0.1 Baso # (Auto) 0.0 Abs Immat Gran (auto) 0.01 Absolute Neuts (auto) 3.7 Absolute Nucleated RBC 0.000 Nucleated RBC % (auto) 0.0 Sodium 141 Potassium 3.8 Chloride 104 Carbon Dioxide 27 Anion Gap 14 BUN 6 L Creatinine 0.88 Estim Creat Clear Calc 128.4 Estimated GFR > 60 Random Glucose 127 H Calcium 9.8 Total Bilirubin 0.6 Direct Bilirubin 0.3 AST 113 H ALT 172 H Alkaline Phosphatase 74 Ammonia 32 Total Protein 7.7 Albumin 5.0 Medications Medications Current Medications Acetaminophen (Acetaminophen 325 Mg Tablet) 650 mg PO Q6H PRN PRN Reason: Headache/Pain, Scale 1-10 Last Admin: 05/01/25 07:33 Dose: 650 mg Al Hydroxide/Mg Hydroxide (Magnesium Hydrox/Alum Hydrox 30 Ml Oral.Susp) 30 ml PO Q6H PRN PRN Reason: Heartburn/Nausea Clonazepam (Clonazepam 0.5 Mg Tablet) 0.5 mg PO BID PRN PRN Reason: Anxiety Last Admin: 05/02/25 21:23 Dose: 0.5 mg Folic Acid (Folic Acid 1 Mg Tablet) 1 mg PO DAILY [facility] Last Admin: 05/02/25 08:40 Dose: 1 mg Gabapentin (Gabapentin 300 Mg Capsule) 300 mg PO TID [facility] Last Admin: 05/02/25 21:24 Dose: 300 mg Hydroxyzine HCl (Hydroxyzine Hcl 25 Mg Tablet) 25 mg PO Q6H PRN PRN Reason: mild anxiety Last Admin: 05/03/25 04:05 Dose: 25 mg Lorazepam (Lorazepam 1 Mg Tablet) 1 mg PO Q2H PRN PRN Reason: CIWA 8-11 Last Admin: 05/02/25 12:35 Dose: 1 mg Lorazepam (Lorazepam 1 Mg Tablet) 2 mg PO Q2H PRN PRN Reason: CIWA 12-15 Lorazepam (Lorazepam 1 Mg Tablet) 3 mg PO Q2H PRN PRN Reason: CIWA > 15, and call Magnesium Hydroxide (Milk Of Magnesia 30 Ml Oral.Susp) 30 ml PO DAILY PRN PRN Reason: Constipation Nicotine (Nicotine 21 Mg Patch.Td24) 21 mg TRANSDERMA DAILY [facility] Last Admin: 05/02/25 08:40 Dose: 21 mg Nicotine Polacrilex (Nicotine Polacrilex 2 Mg Gum) 4 mg BUCCAL Q2H PRN PRN Reason: Nicotine Cravings Last Admin: 05/02/25 13:44 Dose: 4 mg Olanzapine (Olanzapine 5 Mg Tablet) 5 mg PO BID PRN PRN Reason: agitation Last Admin: 05/02/25 21:23 Dose: 5 mg Ondansetron HCl (Ondansetron Odt 4 Mg Tab.Rapdis) 4 mg TRANSLINGU Q6H PRN PRN Reason: Nausea and Vomiting Quetiapine Fumarate (Quetiapine Fumarate 50 Mg Tablet) 50 mg PO BEDTIME MARY Last Admin: 05/02/25 21:23 Dose: 50 mg Thiamine HCl (Thiamine Hcl 100 Mg Tablet) 100 mg PO DAILY MARY Last Admin: 05/02/25 08:40 Dose: 100 mg Trazodone HCl (Trazodone Hcl 50 Mg Tablet) 50 mg PO BEDTIME MRX1 PRN PRN Reason: Insomnia Last Admin: 05/02/25 21:26 Dose: 50 mg Allergies Allergies Allergy/AdvReac Type Severity Reaction Status Date / Time No Known Allergies Allergy Verified 04/28/25 17:02 Assessment & Plan Assessment & Plan (1) Depression: Status: Acute Code(s): F32.A - Depression, unspecified (2) Alcohol dependence: Status: Acute Code(s): F10.20 - Alcohol dependence, uncomplicated (3) Thrush: Status: Acute Code(s): B37.0 - Candidal stomatitis (4) Benzodiazepine abuse: Status: Acute Code(s): F13.10 - Sedative, hypnotic or anxiolytic abuse, uncomplicated Plan 19 yo with alcohol and benzodiazepine use disorder transferred from [facility] due to suicidal ideation. PLAN: - Admit to inpatient psychiatry - CV - Collateral information from family and providers. - Milieu treatment and group therapy. - Medications: CIWA protocol. Add Gabapentin 300 mg TID to prevent withdrawal seizures and help with detox. - Social work evaluation. - Disposition planning. - Consider section 35. 04/30: Start Seroquel 50 mg HS. Otherwise continue current management and treatment plan. 05/01: Active on unit, pacing unit hallway with headphones. Patient reports feeling anxious ; pt stated, I'm still having withdrawal symptoms. I plan on staying sober. I was sober for 4 months but I started doing pills and cocaine again . denies SI/HI/VH/AH. focused on sobriety. labs ordered; awaiting results. continue CIWA. Continue current tx plan. 05/02: Laying in bed. Patient reports feeling anxious and annoyed because of my withdrawal symptoms ; pt utilizing PRN medications. denies any vomiting. denies SI/HI/VH/AH. focused on sobriety. Continue current tx plan. 05/03: Patient states that he feels bad. He notes that he woke up feeling sick and sweaty and attributes that to anxiety from drug and alcohol withdrawal symptoms. He states that he has been taking the medications and attending groups. He endorses anxiety and depression. CIWA is 04/07//06/09. He denies SI/HI/AH/VH. He declines the patient referral for drug and alcohol use disorder. However, he is willing to speak to someone from [facility] comprehensive care team about his drug and alcohol use. Consult placed for [facility] comprehensive care team. Continue current treatment regimen. Patient educated on: therapeutic strategies Reason for continued inpatient stay Substantial Risk for: rapid decompensation Time Spent With Patient Time: Total time managing care of this patient today ____ minutes.
[2025-05-03] MEDS: Nicotine 21 MG PATCH.TD24 TRANSDERMA (13:40)
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
[2025-05-03 20:00] VITALS: BP 128/88; PULSE 103; RESP 16; TEMP 36.7; O2SAT 96
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
[2025-05-04 07:00] VITALS: BMI 28.5
[2025-05-04 08:00] VITALS: BP 100/58; PULSE 64; RESP 16; TEMP 36.4; O2SAT 98
[2025-05-04] MEDS: Nicotine 21 MG PATCH.TD24 TRANSDERMA (08:44)
--- NOTE | 2025-05-04 10:18 | HO.PSYCHPN ---
Subjective Subjective Date of Service: 05/04/25 Reason For Visit: MDD Recurrent Unspec Alcohol Use D/O Etc Subjective Notes: Conditional Voluntary Interim History: Patient states that he feels good today. He is feeling better. He has been taking his medications as prescribed and attending groups. He feels a little anxious. He notes chronic history of anxiety even when we was sober from alcohol and drugs for 5 months earlier this year. He wants to trial Buspirone for anxiety. He denies depression. He denies SI/HI/AH/VH. Medication Compliance: Yes Side effects from medications: No Attending Groups: Intermittent Review of Systems Acute medical concerns: No Mental Status Exam Mental Status Exam Narrative: Appearance: Casually dressed, adequate hygiene Behavior: Calm and cooperative throughout the interview. Eye contact is appropriate, and there are no signs of psychomotor agitation or retardation Speech: Normal volume and prosody Thought process: logical and goal-directed Thought content: Future oriented no self-harming thoughts Mood: good Affect: constricted SI:denies HI:denies VH/AH:none Delusions: None Insight/judgment: Fair insight and judgment Memory/cog: Alert, oriented x 4. grossly intact to conversational testing Diagnostics Vital Signs (24Hr): Vital Signs - 24 hr 05/03/25 20:00 05/04/25 08:00 Temperature 98.1 F 97.6 F Pulse Rate 103 H 64 Respiratory Rate 16 16 Blood Pressure 128/88 100/58 L Pulse Oximetry 96 98 Oxygen Delivery Method Room Air BMI result Body Mass Index 23.8 Labs 05/01/25 13:48 05/01/25 13:48 Medications Medications Current Medications Acetaminophen (Acetaminophen 325 Mg Tablet) 650 mg PO Q6H PRN PRN Reason: Headache/Pain, Scale 1-10 Last Admin: 05/03/25 10:28 Dose: 650 mg Al Hydroxide/Mg Hydroxide (Magnesium Hydrox/Alum Hydrox 30 Ml Oral.Susp) 30 ml PO Q6H PRN PRN Reason: Heartburn/Nausea Clonazepam (Clonazepam 0.5 Mg Tablet) 0.5 mg PO BID PRN PRN Reason: Anxiety Last Admin: 05/04/25 08:44 Dose: 0.5 mg Folic Acid (Folic Acid 1 Mg Tablet) 1 mg PO DAILY [facility] Last Admin: 05/04/25 08:44 Dose: 1 mg Gabapentin (Gabapentin 300 Mg Capsule) 300 mg PO TID [facility]ARY Last Admin: 05/04/25 08:44 Dose: 300 mg Hydroxyzine HCl (Hydroxyzine Hcl 25 Mg Tablet) 25 mg PO Q6H PRN PRN Reason: mild anxiety Last Admin: 05/04/25 08:44 Dose: 25 mg Lorazepam (Lorazepam 1 Mg Tablet) 1 mg PO Q2H PRN PRN Reason: CIWA 8-11 Last Admin: 05/02/25 12:35 Dose: 1 mg Lorazepam (Lorazepam 1 Mg Tablet) 2 mg PO Q2H PRN PRN Reason: CIWA 12-15 Lorazepam (Lorazepam 1 Mg Tablet) 3 mg PO Q2H PRN PRN Reason: CIWA > 15, and call Magnesium Hydroxide (Milk Of Magnesia 30 Ml Oral.Susp) 30 ml PO DAILY PRN PRN Reason: Constipation Nicotine (Nicotine 21 Mg Patch.Td24) 21 mg TRANSDERMA DAILY [facility] Last Admin: 05/04/25 08:44 Dose: 21 mg Nicotine Polacrilex (Nicotine Polacrilex 2 Mg Gum) 4 mg BUCCAL Q2H PRN PRN Reason: Nicotine Cravings Last Admin: 05/04/25 08:48 Dose: 4 mg Olanzapine (Olanzapine 5 Mg Tablet) 5 mg PO BID PRN PRN Reason: agitation Last Admin: 05/02/25 21:23 Dose: 5 mg Ondansetron HCl (Ondansetron Odt 4 Mg Tab.Rapdis) 4 mg TRANSLINGU Q6H PRN PRN Reason: Nausea and Vomiting Quetiapine Fumarate (Quetiapine Fumarate 50 Mg Tablet) 50 mg PO BEDTIME [facility] Last Admin: 05/03/25 21:50 Dose: 50 mg Thiamine HCl (Thiamine Hcl 100 Mg Tablet) 100 mg PO DAILY [facility] Last Admin: 05/04/25 08:43 Dose: 100 mg Trazodone HCl (Trazodone Hcl 50 Mg Tablet) 50 mg PO BEDTIME MRX1 PRN PRN Reason: Insomnia Last Admin: 05/02/25 21:26 Dose: 50 mg Allergies Allergies Allergy/AdvReac Type Severity Reaction Status Date / Time No Known Allergies Allergy Verified 04/28/25 17:02 Assessment & Plan Assessment & Plan (1) Marijuana use: Status: Acute Code(s): F12.90 - Cannabis use, unspecified, uncomplicated (2) Anxiety: Status: Acute Code(s): F41.9 - Anxiety disorder, unspecified (3) Depression: Status: Acute Code(s): F32.A - Depression, unspecified Assessment and Plan: treat per psychiatry (4) Cocaine abuse: Status: Acute Code(s): F14.10 - Cocaine abuse, uncomplicated Assessment and Plan: treat possible topiramate,baclofen,consider other alternatives (5) Alcohol dependence: Status: Acute Code(s): F10.20 - Alcohol dependence, uncomplicated Assessment and Plan: He wants to try gabapentin as needed,probably 100-300 tid and higher if needed. He declines naltrexone and acamprosate for now. Daily MVI,folic acid and thiamine. Check liver fibrosis score. See outpatient, (6) Benzodiazepine abuse: Status: Acute Code(s): F13.10 - Sedative, hypnotic or anxiolytic abuse, uncomplicated Assessment and Plan: less need he reports with gabapentin Plan Plan 19 yo with alcohol and benzodiazepine use disorder transferred from [facility] due to suicidal ideation. PLAN: - Admit to inpatient psychiatry - CV - Collateral information from family and providers. - Milieu treatment and group therapy. - Medications: CIWA protocol. Add Gabapentin 300 mg TID to prevent withdrawal seizures and help with detox. - Social work evaluation. - Disposition planning. - Consider section 35. 04/30: Start Seroquel 50 mg HS. Otherwise continue current management and treatment plan. 05/01: Active on unit, pacing unit hallway with headphones. Patient reports feeling anxious ; pt stated, I'm still having withdrawal symptoms. I plan on staying sober. I was sober for 4 months but I started doing pills and cocaine again . denies SI/HI/VH/AH. focused on sobriety. labs ordered; awaiting results. continue CIWA. Continue current tx plan. 05/02: Laying in bed. Patient reports feeling anxious and annoyed because of my withdrawal symptoms ; pt utilizing PRN medications. denies any vomiting. denies SI/HI/VH/AH. focused on sobriety. Continue current tx plan. 05/03: Patient states that he feels bad. He notes that he woke up feeling sick and sweaty and attributes that to anxiety from drug and alcohol withdrawal symptoms. He states that he has been taking the medications and attending groups. He endorses anxiety and depression. CIWA is 04/07//06/09. He denies SI/HI/AH/VH. He declines the patient referral for drug and alcohol use disorder. However, he is willing to speak to someone from [facility] comprehensive care team about his drug and alcohol use. Consult placed for [facility] comprehensive care team. Continue current treatment regimen. 05/04: Patient states that he feels good today. He is feeling better. He has been taking his medications as prescribed and attending groups. He feels a little anxious. He notes chronic history of anxiety even when we was sober from alcohol and drugs for 5 months earlier this year. He wants to trial Buspirone for anxiety. He denies depression. He denies SI/HI/AH/VH. Buspirone 5 mg twice daily ordered; instructed on the risks, benefits, and potential adverse reactions of the medication; verbalized understanding and agreed with the plan. Continue current treatment regimen. Patient educated on: therapeutic strategies Reason for continued inpatient stay Substantial Risk for: rapid decompensation Time Spent With Patient Time: Total time managing care of this patient today ____ minutes.
[2025-05-04 20:00] VITALS: BP 138/80; PULSE 89; TEMP 36.9; O2SAT 98
[2025-05-05 08:00] VITALS: BP 120/65; PULSE 94; RESP 16; TEMP 37.5; O2SAT 100
--- NOTE | 2025-05-05 08:21 | P.PNPSI_ITS ---
Subjective Subjective Date of Service: 05/05/25 Reason For Visit: MDD Recurrent Unspec Alcohol Use D/O Etc Interim History: met with patient. Discussed with nursing. Overall he reports doing better. Talked openly around alcohol, benzodiazepine and cocaine use disorder. Reports feeling better physically. Reports mood and anxiety also good. Finds olanzapine helpful for anxiety symptoms. Sleep good. Unsure what next steps will be and is considering a three-day notice. Medication Compliance: Yes Side effects from medications: No Attending Groups: Intermittent Review of Systems Acute medical concerns: No Review of Systems Review of Systems Unremarkable Mental Status Exam Mental Status Exam Narrative: Appearance: Casually dressed, adequate hygiene Behavior: Calm and cooperative throughout the interview. Eye contact is appropriate, and there are no signs of psychomotor agitation or retardation Speech: Normal volume and prosody Thought process: logical and goal-directed Thought content: Future oriented no self-harming thoughts Mood: good Affect: constricted SI:denies HI:denies VH/AH:none Delusions: None Insight/judgment: Fair insight and judgment Memory/cog: Alert, oriented x 4. grossly intact to conversational testing Diagnostics Vital Signs (24Hr): Vital Signs - 24 hr 05/04/25 20:00 Temperature 98.5 F Pulse Rate 89 Blood Pressure 138/80 Pulse Oximetry 98 Oxygen Delivery Method Room Air BMI result Body Mass Index 28.5 Labs 05/01/25 13:48 05/01/25 13:48 Medications Medications Current Medications Acetaminophen (Acetaminophen 325 Mg Tablet) 650 mg PO Q6H PRN PRN Reason: Headache/Pain, Scale 1-10 Last Admin: 05/03/25 10:28 Dose: 650 mg Al Hydroxide/Mg Hydroxide (Magnesium Hydrox/Alum Hydrox 30 Ml Oral.Susp) 30 ml PO Q6H PRN PRN Reason: Heartburn/Nausea Buspirone HCl (Buspirone Hcl 5 Mg Tablet) 5 mg PO BID [facility] Last Admin: 05/04/25 21:26 Dose: 5 mg Clonazepam (Clonazepam 0.5 Mg Tablet) 0.5 mg PO BID PRN PRN Reason: Anxiety Last Admin: 05/04/25 19:08 Dose: 0.5 mg Folic Acid (Folic Acid 1 Mg Tablet) 1 mg PO DAILY [facility] Last Admin: 05/04/25 08:44 Dose: 1 mg Gabapentin (Gabapentin 300 Mg Capsule) 300 mg PO TID [facility] Last Admin: 05/04/25 21:26 Dose: 300 mg Hydroxyzine HCl (Hydroxyzine Hcl 25 Mg Tablet) 25 mg PO Q6H PRN PRN Reason: mild anxiety Last Admin: 05/04/25 15:46 Dose: 25 mg Lorazepam (Lorazepam 1 Mg Tablet) 1 mg PO Q2H PRN PRN Reason: CIWA 8-11 Last Admin: 05/02/25 12:35 Dose: 1 mg Lorazepam (Lorazepam 1 Mg Tablet) 2 mg PO Q2H PRN PRN Reason: CIWA 12-15 Lorazepam (Lorazepam 1 Mg Tablet) 3 mg PO Q2H PRN PRN Reason: CIWA > 15, and call Magnesium Hydroxide (Milk Of Magnesia 30 Ml Oral.Susp) 30 ml PO DAILY PRN PRN Reason: Constipation Nicotine (Nicotine 21 Mg Patch.Td24) 21 mg TRANSDERMA DAILY [facility] Last Admin: 05/04/25 08:44 Dose: 21 mg Nicotine Polacrilex (Nicotine Polacrilex 2 Mg Gum) 4 mg BUCCAL Q2H PRN PRN Reason: Nicotine Cravings Last Admin: 05/04/25 21:28 Dose: 4 mg Olanzapine (Olanzapine 5 Mg Tablet) 5 mg PO BID PRN PRN Reason: agitation Last Admin: 05/04/25 23:15 Dose: 5 mg Ondansetron HCl (Ondansetron Odt 4 Mg Tab.Rapdis) 4 mg TRANSLINGU Q6H PRN PRN Reason: Nausea and Vomiting Quetiapine Fumarate (Quetiapine Fumarate 50 Mg Tablet) 50 mg PO BEDTIME [facility] Last Admin: 05/04/25 21:26 Dose: 50 mg Thiamine HCl (Thiamine Hcl 100 Mg Tablet) 100 mg PO DAILY [facility] Last Admin: 05/04/25 08:43 Dose: 100 mg Trazodone HCl (Trazodone Hcl 50 Mg Tablet) 50 mg PO BEDTIME MRX1 PRN PRN Reason: Insomnia Last Admin: 05/02/25 21:26 Dose: 50 mg Allergies Allergies Allergy/AdvReac Type Severity Reaction Status Date / Time No Known Allergies Allergy Verified 04/28/25 17:02 Assessment & Plan Assessment & Plan (1) Marijuana use: Status: Acute Code(s): F12.90 - Cannabis use, unspecified, uncomplicated (2) Anxiety: Status: Acute Code(s): F41.9 - Anxiety disorder, unspecified (3) Depression: Status: Acute Code(s): F32.A - Depression, unspecified Assessment and Plan: treat per psychiatry (4) Cocaine abuse: Status: Acute Code(s): F14.10 - Cocaine abuse, uncomplicated Assessment and Plan: treat possible topiramate,baclofen,consider other alternatives (5) Alcohol dependence: Status: Acute Code(s): F10.20 - Alcohol dependence, uncomplicated Assessment and Plan: He wants to try gabapentin as needed,probably 100-300 tid and higher if needed. He declines naltrexone and acamprosate for now. Daily MVI,folic acid and thiamine. Check liver fibrosis score. See outpatient, (6) Benzodiazepine abuse: Status: Acute Code(s): F13.10 - Sedative, hypnotic or anxiolytic abuse, uncomplicated Assessment and Plan: less need he reports with gabapentin Plan Plan 19 yo with alcohol and benzodiazepine use disorder transferred from [facility] due to suicidal ideation. PLAN: - Admit to inpatient psychiatry - CV - Collateral information from family and providers. - Milieu treatment and group therapy. - Medications: CIWA protocol. Add Gabapentin 300 mg TID to prevent withdrawal seizures and help with detox. - Social work evaluation. - Disposition planning. - Consider section 35. 04/30: Start Seroquel 50 mg HS. Otherwise continue current management and treatment plan. 05/01: Active on unit, pacing unit hallway with headphones. Patient reports feeling anxious ; pt stated, I'm still having withdrawal symptoms. I plan on staying sober. I was sober for 4 months but I started doing pills and cocaine again . denies SI/HI/VH/AH. focused on sobriety. labs ordered; awaiting results. continue CIWA. Continue current tx plan. 05/02: Laying in bed. Patient reports feeling anxious and annoyed because of my withdrawal symptoms ; pt utilizing PRN medications. denies any vomiting. denies SI/HI/VH/AH. focused on sobriety. Continue current tx plan. 05/03: Patient states that he feels bad. He notes that he woke up feeling sick and sweaty and attributes that to anxiety from drug and alcohol withdrawal symptoms. He states that he has been taking the medications and attending groups. He endorses anxiety and depression. CIWA is 04/07//06/09. He denies SI/HI/AH/VH. He declines the patient referral for drug and alcohol use disorder. However, he is willing to speak to someone from [facility] comprehensive care team about his drug and alcohol use. Consult placed for [facility] comprehensive care team. Continue current treatment regimen. 05/04: Patient states that he feels good today. He is feeling better. He has been taking his medications as prescribed and attending groups. He feels a little anxious. He notes chronic history of anxiety even when we was sober from alcohol and drugs for 5 months earlier this year. He wants to trial Buspirone for anxiety. He denies depression. He denies SI/HI/AH/VH. Buspirone 5 mg twice daily ordered; instructed on the risks, benefits, and potential adverse reactions of the medication; verbalized understanding and agreed with the plan. Continue current treatment regimen. 05/05/2025: No changes to current plan. Reason for continued inpatient stay Substantial Risk for: harm to self and rapid decompensation Time Spent With Patient Time: Total time managing care of this patient today ____ minutes.
[2025-05-05] MEDS: Nicotine 21 MG PATCH.TD24 TRANSDERMA (08:48)
[2025-05-05 20:00] VITALS: BP 132/79; PULSE 97; TEMP 36.8
--- NOTE | 2025-05-06 07:28 | HO.PSYCHPN ---
Subjective Subjective Date of Service: 05/06/25 Reason For Visit: MDD Recurrent Unspec Alcohol Use D/O Etc Interim History: met with patient. Discussed with nursing. Overall continues to feel he is doing better. Using prns for anxiety. Discussed increasing gabapentin to 400mg TID. Denied depression. Sleep good. Unsure what next steps will be and is considering a three-day notice. Medication Compliance: Yes Side effects from medications: No Attending Groups: Intermittent Review of Systems Acute medical concerns: No Review of Systems Review of Systems Unremarkable Mental Status Exam Mental Status Exam Narrative: Appearance: Casually dressed, adequate hygiene Behavior: Calm and cooperative throughout the interview. Eye contact is appropriate, and there are no signs of psychomotor agitation or retardation Speech: Normal volume and prosody Thought process: logical and goal-directed Thought content: Future oriented no self-harming thoughts Mood: good Affect: constricted SI:denies HI:denies VH/AH:none Delusions: None Insight/judgment: Fair insight and judgment Memory/cog: Alert, oriented x 4. grossly intact to conversational testing Diagnostics Vital Signs (24Hr): Vital Signs - 24 hr 05/05/25 08:00 05/05/25 20:00 Temperature 99.5 F 98.2 F Pulse Rate 94 97 Respiratory Rate 16 Blood Pressure 120/65 132/79 Pulse Oximetry 100 BMI result Body Mass Index 28.5 Labs 05/01/25 13:48 05/01/25 13:48 Medications Medications Current Medications Acetaminophen (Acetaminophen 325 Mg Tablet) 650 mg PO Q6H PRN PRN Reason: Headache/Pain, Scale 1-10 Last Admin: 05/03/25 10:28 Dose: 650 mg Al Hydroxide/Mg Hydroxide (Magnesium Hydrox/Alum Hydrox 30 Ml Oral.Susp) 30 ml PO Q6H PRN PRN Reason: Heartburn/Nausea Buspirone HCl (Buspirone Hcl 5 Mg Tablet) 5 mg PO BID [facility] Last Admin: 05/05/25 20:16 Dose: 5 mg Clonazepam (Clonazepam 0.5 Mg Tablet) 0.5 mg PO BID PRN PRN Reason: Anxiety Last Admin: 05/05/25 14:45 Dose: 0.5 mg Folic Acid (Folic Acid 1 Mg Tablet) 1 mg PO DAILY [facility] Last Admin: 05/05/25 08:46 Dose: 1 mg Gabapentin (Gabapentin 300 Mg Capsule) 300 mg PO TID [facility] Last Admin: 05/05/25 20:16 Dose: 300 mg Hydroxyzine HCl (Hydroxyzine Hcl 25 Mg Tablet) 25 mg PO Q6H PRN PRN Reason: mild anxiety Last Admin: 05/05/25 08:46 Dose: 25 mg Lorazepam (Lorazepam 1 Mg Tablet) 1 mg PO Q2H PRN PRN Reason: CIWA 8-11 Last Admin: 05/02/25 12:35 Dose: 1 mg Lorazepam (Lorazepam 1 Mg Tablet) 2 mg PO Q2H PRN PRN Reason: CIWA 12-15 Lorazepam (Lorazepam 1 Mg Tablet) 3 mg PO Q2H PRN PRN Reason: CIWA > 15, and call Magnesium Hydroxide (Milk Of Magnesia 30 Ml Oral.Susp) 30 ml PO DAILY PRN PRN Reason: Constipation Nicotine (Nicotine 21 Mg Patch.Td24) 21 mg TRANSDERMA DAILY [facility] Last Admin: 05/05/25 08:48 Dose: 21 mg Nicotine Polacrilex (Nicotine Polacrilex 2 Mg Gum) 4 mg BUCCAL Q2H PRN PRN Reason: Nicotine Cravings Last Admin: 05/05/25 21:19 Dose: 4 mg Olanzapine (Olanzapine 5 Mg Tablet) 5 mg PO BID PRN PRN Reason: agitation Last Admin: 05/05/25 21:19 Dose: 5 mg Ondansetron HCl (Ondansetron Odt 4 Mg Tab.Rapdis) 4 mg TRANSLINGU Q6H PRN PRN Reason: Nausea and Vomiting Quetiapine Fumarate (Quetiapine Fumarate 50 Mg Tablet) 50 mg PO BEDTIME [facility] Last Admin: 05/05/25 21:19 Dose: 50 mg Thiamine HCl (Thiamine Hcl 100 Mg Tablet) 100 mg PO DAILY [facility] Last Admin: 05/05/25 08:46 Dose: 100 mg Trazodone HCl (Trazodone Hcl 50 Mg Tablet) 50 mg PO BEDTIME MRX1 PRN PRN Reason: Insomnia Last Admin: 05/02/25 21:26 Dose: 50 mg Allergies Allergies Allergy/AdvReac Type Severity Reaction Status Date / Time No Known Allergies Allergy Verified 04/28/25 17:02 Assessment & Plan Assessment & Plan (1) Marijuana use: Status: Acute Code(s): F12.90 - Cannabis use, unspecified, uncomplicated (2) Anxiety: Status: Acute Code(s): F41.9 - Anxiety disorder, unspecified (3) Depression: Status: Acute Code(s): F32.A - Depression, unspecified Assessment and Plan: treat per psychiatry (4) Cocaine abuse: Status: Acute Code(s): F14.10 - Cocaine abuse, uncomplicated Assessment and Plan: treat possible topiramate,baclofen,consider other alternatives (5) Alcohol dependence: Status: Acute Code(s): F10.20 - Alcohol dependence, uncomplicated Assessment and Plan: He wants to try gabapentin as needed,probably 100-300 tid and higher if needed. He declines naltrexone and acamprosate for now. Daily MVI,folic acid and thiamine. Check liver fibrosis score. See outpatient, (6) Benzodiazepine abuse: Status: Acute Code(s): F13.10 - Sedative, hypnotic or anxiolytic abuse, uncomplicated Assessment and Plan: less need he reports with gabapentin Plan Plan 19 yo with alcohol and benzodiazepine use disorder transferred from [facility] due to suicidal ideation. PLAN: - Admit to inpatient psychiatry - CV - Collateral information from family and providers. - Milieu treatment and group therapy. - Medications: CIWA protocol. Add Gabapentin 300 mg TID to prevent withdrawal seizures and help with detox. - Social work evaluation. - Disposition planning. - Consider section 35. 04/30: Start Seroquel 50 mg HS. Otherwise continue current management and treatment plan. 05/01: Active on unit, pacing unit hallway with headphones. Patient reports feeling anxious ; pt stated, I'm still having withdrawal symptoms. I plan on staying sober. I was sober for 4 months but I started doing pills and cocaine again . denies SI/HI/VH/AH. focused on sobriety. labs ordered; awaiting results. continue CIWA. Continue current tx plan. 05/02: Laying in bed. Patient reports feeling anxious and annoyed because of my withdrawal symptoms ; pt utilizing PRN medications. denies any vomiting. denies SI/HI/VH/AH. focused on sobriety. Continue current tx plan. 05/03: Patient states that he feels bad. He notes that he woke up feeling sick and sweaty and attributes that to anxiety from drug and alcohol withdrawal symptoms. He states that he has been taking the medications and attending groups. He endorses anxiety and depression. CIWA is 04/07/. He denies SI/HI/AH/VH. He declines the patient referral for drug and alcohol use disorder. However, he is willing to speak to someone from [facility] [place] about his drug and alcohol use. Consult placed for [facility] [place] [facility]. Continue current treatment regimen. 05/04: Patient states that he feels good today. He is feeling better. He has been taking his medications as prescribed and attending groups. He feels a little anxious. He notes chronic history of anxiety even when we was sober from alcohol and drugs for 5 months earlier this year. He wants to trial Buspirone for anxiety. He denies depression. He denies SI/HI/AH/VH. Buspirone 5 mg twice daily ordered; instructed on the risks, benefits, and potential adverse reactions of the medication; verbalized understanding and agreed with the plan. Continue current treatment regimen. 05/05/2025: No changes to current plan. 05/06: increase gabapentin to 400mg TID Reason for continued inpatient stay Substantial Risk for: harm to self Time Spent With Patient Time: Total time managing care of this patient today ____ minutes.
[2025-05-06 08:00] VITALS: BP 120/58; PULSE 70; RESP 18; TEMP 36.4; O2SAT 99
[2025-05-06] MEDS: Nicotine 21 MG PATCH.TD24 TRANSDERMA (08:15)
[2025-05-07 08:00] VITALS: BP 112/66; PULSE 69; RESP 18; TEMP 36.4; O2SAT 99
[2025-05-07] MEDS: Nicotine 21 MG PATCH.TD24 TRANSDERMA (08:11)
--- NOTE | 2025-05-07 10:34 | PC.NURSE ---
Pt signed 3 day, up on Thursday05/10/25. , SW, UR aware.
--- NOTE | 2025-05-07 11:03 | P.PNPSI_ITS ---
Subjective Subjective Date of Service: 05/07/25 Reason For Visit: MDD Recurrent Unspec Alcohol Use D/O Etc Subjective Notes: Coffey Warning and 3 Day Interim History: met with patient. Discussed with nursing. Using prns for anxiety. Discussed increasing gabapentin to 600mg TID. Denied depression. Sleep good. Overall continues to feel he is doing better and eager for discharge. Does notfeel he needs a rehab and signed a 3 day notice. Medication Compliance: Yes Side effects from medications: No Attending Groups: Intermittent Review of Systems Acute medical concerns: No Review of Systems Review of Systems Unremarkable Mental Status Exam Mental Status Exam Narrative: Appearance: Casually dressed, adequate hygiene Behavior: Calm and cooperative throughout the interview. Eye contact is appropriate, and there are no signs of psychomotor agitation or retardation Speech: Normal volume and prosody Thought process: logical and goal-directed Thought content: Future oriented no self-harming thoughts Mood: anxious Affect: constricted SI:denies HI:denies VH/AH:none Delusions: None Insight/judgment: Fair insight and judgment Memory/cog: Alert, oriented x 4. grossly intact to conversational testing Diagnostics Vital Signs (24Hr): Vital Signs - 24 hr 05/07/25 08:00 Temperature 97.5 F Pulse Rate 69 Respiratory Rate 18 Blood Pressure 112/66 Pulse Oximetry 99 Oxygen Delivery Method Room Air BMI result Body Mass Index 28.5 Labs 05/01/25 13:48 05/01/25 13:48 Medications Medications Current Medications Acetaminophen (Acetaminophen 325 Mg Tablet) 650 mg PO Q6H PRN PRN Reason: Headache/Pain, Scale 1-10 Last Admin: 05/03/25 10:28 Dose: 650 mg Al Hydroxide/Mg Hydroxide (Magnesium Hydrox/Alum Hydrox 30 Ml Oral.Susp) 30 ml PO Q6H PRN PRN Reason: Heartburn/Nausea Buspirone HCl (Buspirone Hcl 5 Mg Tablet) 5 mg PO BID ON LICENSE OF [facility] Last Admin: 05/07/25 08:10 Dose: 5 mg Folic Acid (Folic Acid 1 Mg Tablet) 1 mg PO DAILY ON LICENSE OF [facility] Last Admin: 05/07/25 08:11 Dose: 1 mg Gabapentin (Gabapentin 400 Mg Capsule) 400 mg PO TID ON LICENSE OF [facility] Last Admin: 05/07/25 08:11 Dose: 400 mg Hydroxyzine HCl (Hydroxyzine Hcl 25 Mg Tablet) 25 mg PO Q6H PRN PRN Reason: mild anxiety Last Admin: 05/06/25 14:48 Dose: 25 mg Magnesium Hydroxide (Milk Of Magnesia 30 Ml Oral.Susp) 30 ml PO DAILY PRN PRN Reason: Constipation Nicotine (Nicotine 21 Mg Patch.Td24) 21 mg TRANSDERMA DAILY ON LICENSE OF [facility] Last Admin: 05/07/25 08:11 Dose: 21 mg Nicotine Polacrilex (Nicotine Polacrilex 2 Mg Gum) 4 mg BUCCAL Q2H PRN PRN Reason: Nicotine Cravings Last Admin: 05/06/25 13:46 Dose: 4 mg Olanzapine (Olanzapine 5 Mg Tablet) 5 mg PO BID PRN PRN Reason: agitation Last Admin: 05/06/25 21:17 Dose: 5 mg Ondansetron HCl (Ondansetron Odt 4 Mg Tab.Rapdis) 4 mg TRANSLINGU Q6H PRN PRN Reason: Nausea and Vomiting Quetiapine Fumarate (Quetiapine Fumarate 50 Mg Tablet) 50 mg PO BEDTIME ON LICENSE OF [facility] Last Admin: 05/06/25 21:17 Dose: 50 mg Thiamine HCl (Thiamine Hcl 100 Mg Tablet) 100 mg PO DAILY ON LICENSE OF [facility] Last Admin: 05/07/25 08:10 Dose: 100 mg Trazodone HCl (Trazodone Hcl 50 Mg Tablet) 50 mg PO BEDTIME MRX1 PRN PRN Reason: Insomnia Last Admin: 05/06/25 22:48 Dose: 50 mg Allergies Allergies Allergy/AdvReac Type Severity Reaction Status Date / Time No Known Allergies Allergy Verified 04/28/25 17:02 Assessment & Plan Assessment & Plan (1) Marijuana use: Status: Acute Code(s): F12.90 - Cannabis use, unspecified, uncomplicated (2) Anxiety: Status: Acute Code(s): F41.9 - Anxiety disorder, unspecified (3) Depression: Status: Acute Code(s): F32.A - Depression, unspecified Assessment and Plan: treat per psychiatry (4) Cocaine abuse: Status: Acute Code(s): F14.10 - Cocaine abuse, uncomplicated Assessment and Plan: treat possible topiramate,baclofen,consider other alternatives (5) Alcohol dependence: Status: Acute Code(s): F10.20 - Alcohol dependence, uncomplicated Assessment and Plan: He wants to try gabapentin as needed,probably 100-300 tid and higher if needed. He declines naltrexone and acamprosate for now. Daily MVI,folic acid and thiamine. Check liver fibrosis score. See outpatient, (6) Benzodiazepine abuse: Status: Acute Code(s): F13.10 - Sedative, hypnotic or anxiolytic abuse, uncomplicated Assessment and Plan: less need he reports with gabapentin Plan Plan 19 yo with alcohol and benzodiazepine use disorder transferred from [facility] due to suicidal ideation. PLAN: - Admit to inpatient psychiatry - CV - Collateral information from family and providers. - Milieu treatment and group therapy. - Medications: CIWA protocol. Add Gabapentin 300 mg TID to prevent withdrawal seizures and help with detox. - Social work evaluation. - Disposition planning. - Consider section 35. 04/30: Start Seroquel 50 mg HS. Otherwise continue current management and treatment plan. 05/01: Active on unit, pacing unit hallway with headphones. Patient reports feeling anxious ; pt stated, I'm still having withdrawal symptoms. I plan on staying sober. I was sober for 4 months but I started doing pills and cocaine again . denies SI/HI/VH/AH. focused on sobriety. labs ordered; awaiting results. continue CIWA. Continue current tx plan. 05/02: Laying in bed. Patient reports feeling anxious and annoyed because of my withdrawal symptoms ; pt utilizing PRN medications. denies any vomiting. denies SI/HI/VH/AH. focused on sobriety. Continue current tx plan. 05/03: Patient states that he feels bad. He notes that he woke up feeling sick and sweaty and attributes that to anxiety from drug and alcohol withdrawal symptoms. He states that he has been taking the medications and attending groups. He endorses anxiety and depression. CIWA is 04/07//06/09. He denies SI/HI/AH/VH. He declines the patient referral for drug and alcohol use disorder. However, he is willing to speak to someone from [facility] comprehensive care team about his drug and alcohol use. Consult placed for [facility] comprehensive care team. Continue current treatment regimen. 05/04: Patient states that he feels good today. He is feeling better. He has been taking his medications as prescribed and attending groups. He feels a little anxious. He notes chronic history of anxiety even when we was sober from alcohol and drugs for 5 months earlier this year. He wants to trial Buspirone for anxiety. He denies depression. He denies SI/HI/AH/VH. Buspirone 5 mg twice daily ordered; instructed on the risks, benefits, and potential adverse reactions of the medication; verbalized understanding and agreed with the plan. Continue current treatment regimen. 05/05/2025: No changes to current plan. 05/06: increase gabapentin to 400mg TID 05/07: Overall continues to feel he is doing better and eager for discharge. Does notfeel he needs a rehab and signed a 3 day notice. Gabapentin increased to 600mg tid Reason for continued inpatient stay Substantial Risk for: harm to self Time Spent With Patient Time: Total time managing care of this patient today ____ minutes.
[2025-05-07 20:00] VITALS: BP 120/65; PULSE 100; RESP 16; TEMP 37.7; O2SAT 97
[2025-05-08 08:00] VITALS: BP 108/65; PULSE 59; RESP 16; TEMP 36.4; O2SAT 98
[2025-05-08] MEDS: Nicotine 21 MG PATCH.TD24 TRANSDERMA (08:10)
--- NOTE | 2025-05-08 09:33 | HO.PSYCHPN ---
Subjective Subjective Date of Service: 05/08/25 Reason For Visit: MDD Recurrent Unspec Alcohol Use D/O Etc Interim History: first time meeting with patient; discussed with team; reviewed chart Patient reports that he is doing well and that his mood is good.. He says he is feeling much better, glad to be sober from Xanax. Patient discussed how he was sober in the past and is grateful to be back on track. Patient finds gabapentin very helpful and said that in the past when he was on 800 mg t.i.d. was part of what helped him remain sober and copy writer agreed to increase. Patient does not feel like BuSpar is necessary and prefers Zyprexa as a p.r.n. Substance abuse treatment discussed; patient declines further help with outpt treatment options or programs and instead plans to work out sobriety on own. Mental Status Exam Mental Status Exam Narrative: Pt is alert and oriented; behavior is cooperative, friendly and calm; patient is not in distress; dressed in hospital attire with unkempt hair but adequate hygiene; mood is described as good and affect congruent; eye contact appropriate; Speech is normal rate, volume and prosody and not pressured; no psychomotor agitation/retardation present; thought process is organized and goal directed; Thought content is on tx; otherwise pertinent to relevant topics and without any delusional content, paranoid ideations or grandiosity; denies any SI/HI. Denies AVH and there is no evidence of perceptual disturbance. Patients insight and judgment appear intact. Diagnostics Vital Signs (24Hr): Vital Signs - 24 hr 05/07/25 20:00 05/08/25 08:00 Temperature 99.9 F 97.6 F Pulse Rate 100 59 Respiratory Rate 16 16 Blood Pressure 120/65 108/65 Pulse Oximetry 97 98 Oxygen Delivery Method Room Air Room Air BMI result Body Mass Index 28.5 Labs 05/01/25 13:48 05/01/25 13:48 Medications Medications Current Medications Acetaminophen (Acetaminophen 325 Mg Tablet) 650 mg PO Q6H PRN PRN Reason: Headache/Pain, Scale 1-10 Last Admin: 05/03/25 10:28 Dose: 650 mg Al Hydroxide/Mg Hydroxide (Magnesium Hydrox/Alum Hydrox 30 Ml Oral.Susp) 30 ml PO Q6H PRN PRN Reason: Heartburn/Nausea Buspirone HCl (Buspirone Hcl 5 Mg Tablet) 5 mg PO BID [facility] Last Admin: 05/08/25 08:11 Dose: 5 mg Folic Acid (Folic Acid 1 Mg Tablet) 1 mg PO DAILY [facility] Last Admin: 05/08/25 08:11 Dose: 1 mg Gabapentin (Gabapentin 300 Mg Capsule) 600 mg PO TID [facility] Last Admin: 05/08/25 08:11 Dose: 600 mg Hydroxyzine HCl (Hydroxyzine Hcl 25 Mg Tablet) 25 mg PO Q6H PRN PRN Reason: mild anxiety Last Admin: 05/06/25 14:48 Dose: 25 mg Magnesium Hydroxide (Milk Of Magnesia 30 Ml Oral.Susp) 30 ml PO DAILY PRN PRN Reason: Constipation Nicotine (Nicotine 21 Mg Patch.Td24) 21 mg TRANSDERMA DAILY [facility] Last Admin: 05/08/25 08:10 Dose: 21 mg Nicotine Polacrilex (Nicotine Polacrilex 2 Mg Gum) 4 mg BUCCAL Q2H PRN PRN Reason: Nicotine Cravings Last Admin: 05/07/25 18:29 Dose: 4 mg Olanzapine (Olanzapine 5 Mg Tablet) 5 mg PO BID PRN PRN Reason: agitation Last Admin: 05/07/25 21:16 Dose: 5 mg Ondansetron HCl (Ondansetron Odt 4 Mg Tab.Rapdis) 4 mg TRANSLINGU Q6H PRN PRN Reason: Nausea and Vomiting Quetiapine Fumarate (Quetiapine Fumarate 50 Mg Tablet) 50 mg PO BEDTIME [facility] Last Admin: 05/07/25 21:16 Dose: 50 mg Thiamine HCl (Thiamine Hcl 100 Mg Tablet) 100 mg PO DAILY [facility] Last Admin: 05/08/25 08:11 Dose: 100 mg Trazodone HCl (Trazodone Hcl 50 Mg Tablet) 50 mg PO BEDTIME MRX1 PRN PRN Reason: Insomnia Last Admin: 05/06/25 22:48 Dose: 50 mg Allergies Allergies Allergy/AdvReac Type Severity Reaction Status Date / Time No Known Allergies Allergy Verified 04/28/25 17:02 Assessment & Plan Assessment & Plan (1) Marijuana use: Status: Acute Code(s): F12.90 - Cannabis use, unspecified, uncomplicated (2) Anxiety: Status: Acute Code(s): F41.9 - Anxiety disorder, unspecified (3) Depression: Status: Acute Code(s): F32.A - Depression, unspecified Assessment and Plan: treat per psychiatry (4) Cocaine abuse: Status: Acute Code(s): F14.10 - Cocaine abuse, uncomplicated Assessment and Plan: treat possible topiramate,baclofen,consider other alternatives (5) Alcohol dependence: Status: Acute Code(s): F10.20 - Alcohol dependence, uncomplicated Assessment and Plan: He wants to try gabapentin as needed,probably 100-300 tid and higher if needed. He declines naltrexone and acamprosate for now. Daily MVI,folic acid and thiamine. Check liver fibrosis score. See outpatient, (6) Benzodiazepine abuse: Status: Acute Code(s): F13.10 - Sedative, hypnotic or anxiolytic abuse, uncomplicated Assessment and Plan: less need he reports with gabapentin Plan HPI: 19 year old male resides in [facility]. He reports this is his first hospitalization. He was transferred from [facility]. Patient with history of alcohol and benzodiazepine use disorder and reported ADHD. Patient's family called crisis because he was sending texts in a family group chat that he wants to and is suicidal. He was intoxicated at the time and reported he took 20 mg of Xanax and drank a bottle of Jaye. He was evaluated by crisis and transferred to [place] and then to [facility]. He reports drinking since he was 13. He gets benzodiazepines off the street. He says he was sober for a few months then had a falling out with his ex girlfriend and he relapsed. He reports he has detoxed himself in the past. Reports he once had a seizure from withdrawals. He says he feels he is withdrawing. Patient is on a CIWA and had been given Ativan. He was sleeping but arousable when this copy writer went to interview him. No objective signs of withdrawals were observed. Patient reports he has been depressed. Records report patient is resistant to engaging in treatment. He reports he was hospitalized medically for 23 days for alcohol poisoning. Denies current SI. Hospital course: 04/30: Start Seroquel 50 mg HS. Otherwise continue current management and treatment plan. 05/01: Active on unit, pacing unit hallway with headphones. Patient reports feeling anxious ; pt stated, I'm still having withdrawal symptoms. I plan on staying sober. I was sober for 4 months but I started doing pills and cocaine again . denies SI/HI/VH/AH. focused on sobriety. labs ordered; awaiting results. continue CIWA. Continue current tx plan. 05/02: Laying in bed. Patient reports feeling anxious and annoyed because of my withdrawal symptoms ; pt utilizing PRN medications. denies any vomiting. denies SI/HI/VH/AH. focused on sobriety. Continue current tx plan. 05/03: Patient states that he feels bad. He notes that he woke up feeling sick and sweaty and attributes that to anxiety from drug and alcohol withdrawal symptoms. He states that he has been taking the medications and attending groups. He endorses anxiety and depression. CIWA is 04/07//06/09. He denies SI/HI/AH/VH. He declines the patient referral for drug and alcohol use disorder. However, he is willing to speak to someone from [facility] comprehensive care team about his drug and alcohol use. Consult placed for [facility] care team. Continue current treatment regimen. 05/04: Patient states that he feels good today. He is feeling better. He has been taking his medications as prescribed and attending groups. He feels a little anxious. He notes chronic history of anxiety even when we was sober from alcohol and drugs for 5 months earlier this year. He wants to trial Buspirone for anxiety. He denies depression. He denies SI/HI/AH/VH. Buspirone 5 mg twice daily ordered; instructed on the risks, benefits, and potential adverse reactions of the medication; verbalized understanding and agreed with the plan. Continue current treatment regimen. 05/05/2025: No changes to current plan. 05/06: increase gabapentin to 400mg TID 05/07: Overall continues to feel he is doing better and eager for discharge. Does notfeel he needs a rehab and signed a 3 day notice. Gabapentin increased to 600mg tid 05/08 Patient reports that he is doing well and that his mood is good.. He says he is feeling much better, glad to be sober from Xanax. Patient discussed how he was sober in the past and is grateful to be back on track. Patient finds gabapentin very helpful and said that in the past when he was on 800 mg t.i.d. was part of what helped him remain sober and copy writer agreed to increase. Patient does not feel like BuSpar is necessary and prefers Zyprexa as a p.r.n. Substance abuse treatment discussed; patient declines further help with outpt treatment options or programs and instead plans to work out sobriety on own. Impression: Mood significantly improved and patient stable, feeling back to his regular self. Remains in good behavioral and impulse control and engaged in treatment. Patient has placed a 3 day notice Substance abuse treatment and risks discussed with patient who at this time patient declines help with outpt treatment options including programs; instead patient is choosing to work out sobriety on own. Gabapentin helping with anxiety and doubling MAT PLAN: - Admit to inpatient psychiatry 3 day - Collateral information from family and providers. - Milieu treatment and group therapy. - Medications: [place] protocol. Increase to gabapentin 800 mg t.i.d.; was on this dose in the past DC BuSpar; patient does not want Continue Zyprexa - Social work evaluation. - Disposition planning. Patient educated on: diagnosis, medication risk/benefits, substance abuse and therapeutic strategies Informed Consent: understands Reason for continued inpatient stay Substantial Risk for: stable for discharge Time Spent With Patient Time: Total time managing care of this patient today ____ minutes.
[2025-05-08 20:00] VITALS: BP 132/73; PULSE 96; RESP 16; TEMP 36.6; O2SAT 98
[2025-05-09 08:00] VITALS: BP 102/64; PULSE 64; RESP 16; TEMP 36.8; O2SAT 98
[2025-05-09] MEDS: Nicotine 21 MG PATCH.TD24 TRANSDERMA (09:03)
[2025-05-09 20:00] VITALS: BP 137/82; PULSE 96; RESP 16; TEMP 36.4; O2SAT 98
--- NOTE | 2025-05-09 21:30 | HO.PSYCHPN ---
Subjective Subjective Date of Service: 05/09/25 Reason For Visit: MDD Recurrent Unspec Alcohol Use D/O Etc Diagnostics Vital Signs (24Hr): Vital Signs - 24 hr 05/09/25 08:00 05/09/25 20:00 Temperature 98.2 F 97.6 F Pulse Rate 64 96 Respiratory Rate 16 16 Blood Pressure 102/64 137/82 Pulse Oximetry 98 98 Oxygen Delivery Method Room Air Room Air BMI result Body Mass Index 28.5 Labs 05/01/25 13:48 05/01/25 13:48 Medications Medications Current Medications Acetaminophen (Acetaminophen 325 Mg Tablet) 650 mg PO Q6H PRN PRN Reason: Headache/Pain, Scale 1-10 Last Admin: 05/03/25 10:28 Dose: 650 mg Al Hydroxide/Mg Hydroxide (Magnesium Hydrox/Alum Hydrox 30 Ml Oral.Susp) 30 ml PO Q6H PRN PRN Reason: Heartburn/Nausea Folic Acid (Folic Acid 1 Mg Tablet) 1 mg PO DAILY [facility] Last Admin: 05/09/25 09:05 Dose: 1 mg Gabapentin (Gabapentin 400 Mg Capsule) 800 mg PO TID [facility] Last Admin: 05/09/25 14:03 Dose: 800 mg Hydroxyzine HCl (Hydroxyzine Hcl 25 Mg Tablet) 25 mg PO Q6H PRN PRN Reason: mild anxiety Last Admin: 05/09/25 20:29 Dose: 25 mg Magnesium Hydroxide (Milk Of Magnesia 30 Ml Oral.Susp) 30 ml PO DAILY PRN PRN Reason: Constipation Nicotine (Nicotine 21 Mg Patch.Td24) 21 mg TRANSDERMA DAILY [facility] Last Admin: 05/09/25 09:03 Dose: 21 mg Nicotine Polacrilex (Nicotine Polacrilex 2 Mg Gum) 4 mg BUCCAL Q2H PRN PRN Reason: Nicotine Cravings Last Admin: 05/09/25 17:59 Dose: 4 mg Olanzapine (Olanzapine 5 Mg Tablet) 5 mg PO BID PRN PRN Reason: agitation Last Admin: 05/09/25 20:29 Dose: 5 mg Ondansetron HCl (Ondansetron Odt 4 Mg Tab.Rapdis) 4 mg TRANSLINGU Q6H PRN PRN Reason: Nausea and Vomiting Quetiapine Fumarate (Quetiapine Fumarate 50 Mg Tablet) 50 mg PO BEDTIME [facility] Last Admin: 05/08/25 21:21 Dose: 50 mg Thiamine HCl (Thiamine Hcl 100 Mg Tablet) 100 mg PO DAILY [facility] Last Admin: 05/09/25 09:05 Dose: 100 mg Trazodone HCl (Trazodone Hcl 50 Mg Tablet) 50 mg PO BEDTIME MRX1 PRN PRN Reason: Insomnia Last Admin: 05/06/25 22:48 Dose: 50 mg Allergies Allergies Allergy/AdvReac Type Severity Reaction Status Date / Time No Known Allergies Allergy Verified 04/28/25 17:02 Assessment & Plan Assessment & Plan (1) Marijuana use: Status: Acute Code(s): F12.90 - Cannabis use, unspecified, uncomplicated (2) Anxiety: Status: Acute Code(s): F41.9 - Anxiety disorder, unspecified (3) Depression: Status: Acute Code(s): F32.A - Depression, unspecified Assessment and Plan: treat per psychiatry (4) Cocaine abuse: Status: Acute Code(s): F14.10 - Cocaine abuse, uncomplicated Assessment and Plan: treat possible topiramate,baclofen,consider other alternatives (5) Alcohol dependence: Status: Acute Code(s): F10.20 - Alcohol dependence, uncomplicated Assessment and Plan: He wants to try gabapentin as needed,probably 100-300 tid and higher if needed. He declines naltrexone and acamprosate for now. Daily MVI,folic acid and thiamine. Check liver fibrosis score. See outpatient, (6) Benzodiazepine abuse: Status: Acute Code(s): F13.10 - Sedative, hypnotic or anxiolytic abuse, uncomplicated Assessment and Plan: less need he reports with gabapentin Plan HPI: 19 year old male resides in [facility]. He reports this is his first hospitalization. He was transferred from [facility]. Patient with history of alcohol and benzodiazepine use disorder and reported ADHD. Patient's family called crisis because he was sending texts in a family group chat that he wants to and is suicidal. He was intoxicated at the time and reported he took 20 mg of Xanax and drank a bottle of Jaye. He was evaluated by crisis and transferred to [place] and then to [facility]. He reports drinking since he was 13. He gets benzodiazepines off the street. He says he was sober for a few months then had a falling out with his ex girlfriend and he relapsed. He reports he has detoxed himself in the past. Reports he once had a seizure from withdrawals. He says he feels he is withdrawing. Patient is on a CIWA and had been given Ativan. He was sleeping but arousable when this health science writer went to interview him. No objective signs of withdrawals were observed. Patient reports he has been depressed. Records report patient is resistant to engaging in treatment. He reports he was hospitalized medically for 23 days for alcohol poisoning. Denies current SI. Hospital course: 04/30: Start Seroquel 50 mg HS. Otherwise continue current management and treatment plan. 05/01: Active on unit, pacing unit hallway with headphones. Patient reports feeling anxious ; pt stated, I'm still having withdrawal symptoms. I plan on staying sober. I was sober for 4 months but I started doing pills and cocaine again . denies SI/HI/VH/AH. focused on sobriety. labs ordered; awaiting results. continue CIWA. Continue current tx plan. 05/02: Laying in bed. Patient reports feeling anxious and annoyed because of my withdrawal symptoms ; pt utilizing PRN medications. denies any vomiting. denies SI/HI/VH/AH. focused on sobriety. Continue current tx plan. 05/03: Patient states that he feels bad. He notes that he woke up feeling sick and sweaty and attributes that to anxiety from drug and alcohol withdrawal symptoms. He states that he has been taking the medications and attending groups. He endorses anxiety and depression. CIWA is 04/07//06/09. He denies SI/HI/AH/VH. He declines the patient referral for drug and alcohol use disorder. However, he is willing to speak to someone from [facility] comprehensive care team about his drug and alcohol use. Consult placed for [facility] comprehensive care team. Continue current treatment regimen. 05/04: Patient states that he feels good today. He is feeling better. He has been taking his medications as prescribed and attending groups. He feels a little anxious. He notes chronic history of anxiety even when we was sober from alcohol and drugs for 5 months earlier this year. He wants to trial Buspirone for anxiety. He denies depression. He denies SI/HI/AH/VH. Buspirone 5 mg twice daily ordered; instructed on the risks, benefits, and potential adverse reactions of the medication; verbalized understanding and agreed with the plan. Continue current treatment regimen. 05/05/2025: No changes to current plan. 05/06: increase gabapentin to 400mg TID 05/07: Overall continues to feel he is doing better and eager for discharge. Does notfeel he needs a rehab and signed a 3 day notice. Gabapentin increased to 600mg tid 05/08 Patient reports that he is doing well and that his mood is good.. He says he is feeling much better, glad to be sober from Xanax. Patient discussed how he was sober in the past and is grateful to be back on track. Patient finds gabapentin very helpful and said that in the past when he was on 800 mg t.i.d. was part of what helped him remain sober and health science writer agreed to increase. Patient does not feel like BuSpar is necessary and prefers Zyprexa as a p.r.n. Substance abuse treatment discussed; patient declines further help with outpt treatment options or programs and instead plans to work out sobriety on own. Impression: Mood significantly improved and patient stable, feeling back to his regular self. Remains in good behavioral and impulse control and engaged in treatment. Patient has placed a 3 day notice Substance abuse treatment and risks discussed with patient who at this time patient declines help with outpt treatment options including programs; instead patient is choosing to work out sobriety on own. Gabapentin helping with anxiety and doubling MAT 05/09 patient remains in good mood, appreciates increase in gabapentin continues to feel ready for discharge. He remains in good behavioral and impulse control. Three day notice is coming due and patient is not in imminent risk for harm to self or others. He is appropriate to return to the community for treatment Request for discharge honored PLAN: - Admit to inpatient psychiatry 3 day - Collateral information from family and providers. - Milieu treatment and group therapy. - Medications: CIWA protocol. Increase to gabapentin 800 mg t.i.d.; was on this dose in the past DC BuSpar; patient does not want Continue Zyprexa - Social work evaluation. - Disposition planning. Patient educated on: diagnosis, medication risk/benefits and substance abuse Informed Consent: understands Reason for continued inpatient stay Substantial Risk for: stable for discharge Time Spent With Patient Time: Total time managing care of this patient today ____ minutes.
[2025-05-10 08:00] VITALS: BP 115/62; PULSE 83; RESP 16; TEMP 2.3; TEMP 36.1; O2SAT 96
--- NOTE | 2025-05-10 08:59 | P.DS_ITS ---
DS: Providers Provider Date of Service: 05/10/25 Date of admission: 04/28/25 15:56 Date of discharge: 05/10/25 Primary care physician: Unknown Physician Attending physician on admission: Etienne Carson Consults: 04/28/25 17:02 Consult to Hospitalist Routine Comment: Consulting Provider: [facility] Hospital[facility] Reason For Exam: External admission (H&P) 04/28/25 19:16 Addiction Medicine Provider Routine Consulting Provider: Addiction Covering Reason for consultation: alcohol use disorder Has provider been notified: Yes 05/03/25 14:04 Consult to Comprehensive Care Routine Consulting Provider: [facility] Attending physician on discharge: Demetri Linares DS: Diagnosis Discharge Diagnosis (1) Marijuana use: Status: Acute (2) Anxiety: Status: Acute (3) Depression: Status: Acute (4) Cocaine abuse: Status: Acute (5) Alcohol dependence: Status: Acute (6) Benzodiazepine abuse: Status: Acute DS: Medications Discharge Medications Home Medications: Home Medications ?Medication ?Instructions ?Recorded ?Confirmed lorazepam 1 mg tablet 0.5 mg PO Q8H PRN anxiety 04/28/25 ondansetron 4 mg disintegrating 4 mg PO Q8H PRN nausea /vomiting 04/28/25 04/28/25 tablet Mental Status Exam Mental Status Exam Narrative: Pt is alert and oriented; behavior is cooperative, friendly and calm; patient is not in distress; dressed in casual attire with adequate grooming and hygiene; mood is described as good and affect congruent; eye contact appropriate; Speech is normal rate, volume and prosody and not pressured; no psychomotor agitation/retardation present; thought process is organized and goal directed; Thought content is on tx; otherwise pertinent to relevant topics and without any delusional content, paranoid ideations or grandiosity; denies any SI/HI. Denies AVH and there is no evidence of perceptual disturbance. Patients insight and judgment are intact. Data Data Completed and Pending Completed studies during hospitalization [Text1]: 05/04/25 07:57 Liver GGT Pending Liver Total Bilirubin Pending Liver Apolipoprotein A1 Pending Liver Fibrosis ALT Pending Liver [id number] Pending Liver Haptoglobin Pending Liver Fibrosis Score Pending Liver Fibrosis Interp Pending Liver Fibrosis Comment Pending Liver Fibrosis Stage Pending Necroinflammator Score Pending Necroinflam Score Cmmt Pending Necroinflammator Grade Pending Ref Lab Specimen ID Pending DS: Summary Hospital Course Hospital Course: HPI: 19 year old male resides in [facility]. He reports this is his first hospitalization. He was transferred from [facility]. Patient with history of alcohol and benzodiazepine use disorder and reported ADHD. Patient's family called crisis because he was sending texts in a family group chat that he wants to and is suicidal. He was intoxicated at the time and reported he took 20 mg of Xanax and drank a bottle of Jaye. He was evaluated by crisis and transferred to [place] and then to [facility]. He reports drinking since he was 13. He gets benzodiazepines off the street. He says he was sober for a few months then had a falling out with his ex girlfriend and he relapsed. He reports he has detoxed himself in the past. Reports he once had a seizure from withdrawals. He says he feels he is withdrawing. Patient is on a CIWA and had been given Ativan. He was sleeping but arousable when this commercial lines underwriter went to interview him. No objective signs of withdrawals were observed. Patient reports he has been depressed. Records report patient is resistant to engaging in treatment. He reports he was hospitalized medically for 23 days for alcohol poisoning. Denies current SI. Hospital course: 04/30: Start Seroquel 50 mg HS. Otherwise continue current management and treatment plan. 05/01: Active on unit, pacing unit hallway with headphones. Patient reports feeling anxious ; pt stated, I'm still having withdrawal symptoms. I plan on staying sober. I was sober for 4 months but I started doing pills and cocaine again . denies SI/HI/VH/AH. focused on sobriety. labs ordered; awaiting results. continue CIWA. Continue current tx plan. 05/02: Laying in bed. Patient reports feeling anxious and annoyed because of my withdrawal symptoms ; pt utilizing PRN medications. denies any vomiting. denies SI/HI/VH/AH. focused on sobriety. Continue current tx plan. 05/03: Patient states that he feels bad. He notes that he woke up feeling sick and sweaty and attributes that to anxiety from drug and alcohol withdrawal sy mptoms. He states that he has been taking the medications and attending groups. He endorses anxiety and depression. CIWA is 04/07//06/09. He denies SI/HI/AH/VH. He declines the patient referral for drug and alcohol use disorder. However, he is willing to speak to someone from [facility] comprehensive care team about his drug and alcohol use. Consult placed for [facility] comprehensive care team. Continue current treatment regimen. 05/04: Patient states that he feels good today. He is feeling better. He has been taking his medications as prescribed and attending groups. He feels a little anxious. He notes chronic history of anxiety even when we was sober from alcohol and drugs for 5 months earlier this year. He wants to trial Buspirone for anxiety. He denies depression. He denies SI/HI/AH/VH. Buspirone 5 mg twice daily ordered; instructed on the risks, benefits, and potential adverse reactions of the medication; verbalized understanding and agreed with the plan. Continue current treatment regimen. 05/05/2025: No changes to current plan. 05/06: increase gabapentin to 400mg TID 05/07: Overall continues to feel he is doing better and eager for discharge. Does notfeel he needs a rehab and signed a 3 day notice. Gabapentin increased to 600mg tid 05/08 Patient reports that he is doing well and that his mood is good.. He says he is feeling much better, glad to be sober from Xanax. Patient discussed how he was sober in the past and is grateful to be back on track. Patient finds gabapentin very helpful and said that in the past when he was on 800 mg t.i.d. was part of what helped him remain sober and commercial lines underwriter agreed to increase. Patient does not feel like BuSpar is necessary and prefers Zyprexa as a p.r.n. Substance abuse treatment discussed; patient declines further help with outpt treatment options or programs and instead plans to work out sobriety on own. 05/09remains Mood significantly improved and patient stable, feeling back to his regular self. Remains in good behavioral and impulse control and engaged in treatment. Patient has placed a 3 day notice Substance abuse treatment and risks discussed with patient who at this time patient declines help with outpt treatment options including programs; instead patient is choosing to work out sobriety on own. Gabapentin helping with anxiety and doubling MAT. Patient feels confident he can remain sober as he has done in the past. Impression: Patient is in good mood and depression fully abated; no SI at all and patient feels stable and back to his regular self. Patient has remained in good behavioral and impulse control and engaged in treatment and appropriate with peers and staff. Patient's Three day notice is coming due and he is not in imminent risk for harm to self or others. He is appropriate to return to the community for treatment Request for discharge honored Time spent discussing smoking cessation with patient: 3 to 10 minutes Status at Discharge Functional status at discharge: independent ambulation Overall status at discharge: patient is back to baseline Time Spent with Patient Time attestation: Total time managing care of this patient today __40__ minutes. Time spent: Greater than 30 minutes Specific discharge activities: Met with patient; discussed with team; charting; prescriptions Discharge Plan Discharge Anticipated Discharge Date/Time: 05/10/25 11:30 Patient Disposition: Home, Self-Care Discharge Diagnosis: MDD, recurrent, severe without psychosis, in full remission Referrals: Baldev Severino: [facility] [Other] - 05/11/25 12:30 pm Referral Note: Initial evaluation for psychiatry and therapy services Appointment in person at [facility] in [place], [place]. Physician,Unknown J [Primary Care Provider, Medical] - 1 Week Discharge Medications: New nicotine 21 mg/24 hr Patch 24 Hour 21 mg transdermal DAILY PRN (Reason: nicotine cravings) 28 Days Qty: 28 0RF Rx Instructions: remove at bedtime nicotine (polacrilex) 4 mg gum 4 mg buccal Q2H PRN (Reason: nicotine cravings) 30 Days Qty: 100 0RF gabapentin 800 mg tablet 800 mg PO TID 30 Days Qty: 90 0RF hydroxyzine HCl 25 mg Tablet 25 mg PO Q6H PRN (Reason: mild anxiety) 30 Days Qty: 60 0RF olanzapine 5 mg Tablet 5 mg PO BID PRN (Reason: agitation/anxiety) 30 Days Qty: 60 0RF quetiapine 50 mg Tablet 50 mg PO BEDTIME PRN (Reason: sleep) 30 Days Qty: 30 0RF Discontinued lorazepam 1 mg tablet 0.5 mg PO Q8H PRN (Reason: anxiety) ondansetron 4 mg tablet,disintegrating 4 mg PO Q8H PRN (Reason: nausea/vomiting) Discharge Orders: Discharge Order (Routine); Ordered 05/10/25 Ordered By: Demetri Linares Diet: Regular diet Activity on Discharge: As tolerated Stand Alone Forms: Patient Portal Discharge page Print Language: [place] Care Plan Goals: Maintain mood and safe behaviors Take medications as prescribed Continue to pursue sobriety Practice coping skills Continue with outpatient providers and reach out to them as needed Health Concerns: Mood stability and behaviors Sobriety Plan of Treatment: Follow up with your PCP, psychiatric provider and other outpatient providers regarding above concerns Take medications as prescribed Assessment: Risk assessment at time of discharge:? Patient was interviewed prior to discharge and found to be fully oriented and without any SI or HI. Patient has improved insight and judgment and wants to continue treatment. Patient is not in imminent risk of harm to self or others and has a safety plan that includes presenting to the closest ER or calling 911 if feeling unsafe.? Patient has been observed closely by nursing and unit staff throughout admission; patient has not engaged in any behaviors that suggest dangerousness to self or others and has demonstrated appropriate behaviors and impulse control
[2025-05-14 22:23] LABS: FIB-ALT 280 U/L (9-46); FIB-Alpha-2-Macroglobulin 208 mg/dL (106-279); FIB-Apolipoprotein A1 184 mg/dL (94-176); FIB-GGT 27 U/L (3-70); FIB-Haptoglobin 164 mg/dL (43-212); FIB-Total Bilirubin 0.9 mg/dL (0.2-1.2); Liver Fibrosis Score 0.10; Liver Fibrosis Stage F0; Nec Inflam Act Grade A3; Nec Inflam Act Score 0.85
== END 2025-05-10 11:45 | disposition home or self-care (01) | DRG 751 ==
PROVIDERS: Internal Medicine; Nurse Practitioner Family; Nurse Practitioner Psychiatric/Mental Health; Registered Nurse; Admitting Provider Psychiatry & Neurology Psychiatry; Visit Provider Psychiatry & Neurology Psychiatry
DX: F33.2 Major depressive disorder, recurrent severe without psychotic features (principal); B37.0 Candidal stomatitis; F17.210 Nicotine dependence, cigarettes, uncomplicated; F41.9 Anxiety disorder, unspecified; F10.10 Alcohol abuse, uncomplicated; F13.10 Sedative, hypnotic or anxiolytic abuse, uncomplicated; Z71.6 Tobacco abuse counseling; Z79.899 Other long term (current) drug therapy
CPT/HCPCS: 36415; 80048; 80053; 80061; 80076; 81596; 82140; 82746; 83036; 84439; 84443; 85025; 86704; 86706; 86709; 86803; 87340; 87389; 93005

== ENCOUNTER → 2025-04-28 15:56 | Outpatient (BNV) | payer OTHER, SELFPAY | PROVIDERS: Admitting Provider Psychiatry & Neurology Psychiatry; Visit Provider Psychiatry & Neurology Psychiatry | DX: F32.2 Major depressive disorder, single episode, severe without psychotic features (principal); F10.20 Alcohol dependence, uncomplicated; F13.10 Sedative, hypnotic or anxiolytic abuse, uncomplicated; B37.0 Candidal stomatitis | CPT/HCPCS: 99232 ==

== ENCOUNTER → 2025-04-28 15:56 | Outpatient (BNV) | payer MEDICAID, SELFPAY | PROVIDERS: Admitting Provider Psychiatry & Neurology Psychiatry; Visit Provider Nurse Practitioner Family | DX: B37.0 Candidal stomatitis (principal) | CPT/HCPCS: 99222 ==

== ENCOUNTER → 2025-04-28 15:56 | Outpatient (BNV) | payer MEDICAID, SELFPAY | PROVIDERS: Admitting Provider Psychiatry & Neurology Psychiatry; Visit Provider Internal Medicine | DX: F12.90 Cannabis use, unspecified, uncomplicated (principal); F41.9 Anxiety disorder, unspecified; F32.A Depression, unspecified; F14.10 Cocaine abuse, uncomplicated; F10.20 Alcohol dependence, uncomplicated; F13.10 Sedative, hypnotic or anxiolytic abuse, uncomplicated | CPT/HCPCS: 99222 ==